=== PATIENT | male | born 1935 | race Caucasian/White ===

== ENCOUNTER 2021-01-26 05:29 | Outpatient (CLI) | payer MEDICARE ==
[~2021-01-26] VITALS: Ht 179 cm; Wt 78.2 kg
[2021-01-28] MEDS ORDERED: ASPI-808 PO (09:15)
[2021-01-28] MEDS ORDERED: BENA20TA7 PO (09:15)
[2021-01-28] MEDS ORDERED: SIMV20TA26 PO (09:15)
[2021-01-28] MEDS ORDERED: MULT-1056 PO (09:15)
[2021-01-28] MEDS ORDERED: AMLO-250 PO (09:15)
[2021-01-28] MEDS ORDERED: HYDR25TA4 PO (09:15)
== END 2021-01-28 09:46 | disposition home or self-care (01) ==
LOC: PREOP 05:29
PROVIDERS: ATTEND Specialist
DX: Z01.818 Encounter for other preprocedural examination (principal)

== ENCOUNTER 2021-01-29 06:32 | Day surgery (SDC) | payer MEDICARE ==
[~2021-01-29] VITALS: Ht 179 cm; Wt 78.0 kg
[~2021-01-29 06:32] MED LIST: AMLO-250 PO; ASPI-808 PO; BENA20TA7 PO; HYDR25TA4 PO; MULT-1056 PO; SIMV20TA26 PO
[2021-01-29] MEDS ORDERED: MOXIFLOXACIN OPHTH SOLN 5 MG/ML 0.3 ML SYRINGE OP ONE (06:45)
[2021-01-29] MEDS ORDERED: LIDOCAINE PF 1% 2 ML VIAL IR PRN (06:45)
[2021-01-29] MEDS ORDERED: POVIDONE (BETADINE) OPHTH SOLN 5% 30 ML OP ONE (06:45)
[2021-01-29] MEDS ORDERED: TIMOLOL MALEATE 0.5% 5 ML (TIMOPTIC) BTL OU PRN (06:45)
[2021-01-29] MEDS ORDERED: MIDAZOLAM 2 MG/2 ML (VERSED) VIAL ONE (06:46)
[2021-01-29] MEDS: TETRACAINE 0.5% OPHTH SOLN 4 ML BTL (SINGLE DOSE ONLY) OU PRN ×4 (06:58→07:17)
[2021-01-29 06:59] VITALS: BP 162/80
[2021-01-29] MEDS: PHENYLEPHRINE 10% OPHTH (NEO-SYN) 5 ML BTL OU SCH ×3 (07:07→07:18)
[2021-01-29] MEDS: TROPICAMIDE 1% OPH SOLN (MYDRIACYL) 15 ML BTL OP SCH ×3 (07:07→07:18)
--- NOTE | 2021-01-29 07:42 | Ophthalmologist Pre-Op Note ---
Pre-Operative Progress Note H&P Reviewed The H&P was reviewed, patient examined and no changes noted. Date H&P Reviewed: Jan 29, 2021 Time H&P Reviewed: 07:42 Pre-Op Dx Cataract, Left Eye RONI CHILDS MD Jan 29, 2021 07:42
[2021-01-29] MEDS ORDERED: acetaZOLAMIDE ER 500 MG CAP (DIAMOX SEQUELS) PO ONE (08:00)
--- NOTE | 2021-01-29 08:08 | Ophthalmology Operative Report ---
Cataract removal/placement IOL PREOPERATIVE DIAGNOSIS: Cataract Left Eye POSTOPERATIVE DIAGNOSIS: Cataract Left Eye PROCEDURE: Cataract removal and placement of posterior chamber implant, left eye SURGEON: Farhat Childs ANESTHESIA: Topical with sedation COMPLICATIONS: None ESTIMATED BLOOD LOSS: Minimal DESCRIPTION OF PROCEDURE: After proper informed consent was obtained, the patient, a 85 male, was taken to the Operating Room and the left eye was anesthetized with tetracaine. The left eye was then prepped and draped in the usual manner. A wire lid speculum was placed. A paracentesis was made at the left hand position. Preservative free lidocaine was injected into the anterior chamber followed by viscoelastic. A clear corneal incision was made in the temporal position. A capsulorrhexis was preformed and the central nuclear and cortical material were removed. The posterior capsule was polished and an Byron 19.0 AU00T0 was placed into the capsular bag. The residual viscoelastic was aspirated and balanced saline solution was injected into the anterior chamber. Moxifloxacin was injected into the anterior chamber. The wound was checked and found to be water tight. The patient tolerated the procedure well without complications. FARHAT CHILDS MD Jan 29, 2021 08:08
[2021-01-29 08:10] VITALS: BP 135/86
--- NOTE | 2021-01-29 08:10 | Anesthesia-General Post-Op ---
MAC Patient Condition Mental Status/LOC: Same as Preop Cardiovascular: Satisfactory Nausea/Vomiting: Absent Respiratory: Satisfactory Pain: Controlled Complications: Absent Post Op Complications Complications None Follow Up Care/Instructions Patient Instructions None needed. Anesthesiology Discharge Order Discharge Order Patient is doing well, no complaints, stable vital signs, no apparent adverse anesthesia problems. No complications reported per nursing. IRINEO ALDANA CRNA Jan 29, 2021 08:10
== END 2021-01-29 08:14 ==
LOC: SDC 06:32
PROVIDERS: ATTEND Specialist
DX: H25.12 Age-related nuclear cataract, left eye (principal); I10 Essential (primary) hypertension; E78.5 Hyperlipidemia, unspecified; M19.90 Unspecified osteoarthritis, unspecified site; Z79.82 Long term (current) use of aspirin; Z79.899 Other long term (current) drug therapy; Z85.46 Personal history of malignant neoplasm of prostate; Z80.9 Family history of malignant neoplasm, unspecified
CPT/HCPCS: 66984; V2632

== ENCOUNTER 2021-02-15 05:33 | Outpatient (CLI) | payer MEDICARE | END 2021-02-18 11:00 | disposition home or self-care (01) | LOC: PREOP 05:33 | PROVIDERS: ATTEND Specialist | DX: Z01.818 Encounter for other preprocedural examination (principal) ==

== ENCOUNTER 2021-02-19 06:00 | Day surgery (SDC) | payer MEDICARE ==
[~2021-02-19] VITALS: Ht 179 cm; Wt 78.0 kg
[2021-02-19] MEDS: TETRACAINE 0.5% OPHTH SOLN 4 ML BTL (SINGLE DOSE ONLY) OU PRN ×4 (06:11→06:34)
[2021-02-19 06:14] VITALS: BP 134/90
[2021-02-19] MEDS ORDERED: TIMOLOL MALEATE 0.5% 5 ML (TIMOPTIC) BTL OU PRN (06:15)
[2021-02-19] MEDS ORDERED: MOXIFLOXACIN OPHTH SOLN 5 MG/ML 0.3 ML SYRINGE OP ONE (06:15)
[2021-02-19] MEDS ORDERED: LIDOCAINE PF 1% 2 ML VIAL IR PRN (06:15)
[2021-02-19] MEDS ORDERED: POVIDONE (BETADINE) OPHTH SOLN 5% 30 ML OP ONE (06:15)
[2021-02-19] MEDS: PHENYLEPHRINE 10% OPHTH (NEO-SYN) 5 ML BTL OU SCH ×3 (06:21→06:35)
[2021-02-19] MEDS: TROPICAMIDE 1% OPH SOLN (MYDRIACYL) 15 ML BTL OP SCH ×3 (06:21→06:35)
[2021-02-19] MEDS ORDERED: MIDAZOLAM 2 MG/2 ML (VERSED) VIAL ONE (06:42)
--- NOTE | 2021-02-19 06:59 | Ophthalmologist Pre-Op Note ---
Pre-Operative Progress Note H&P Reviewed The H&P was reviewed, patient examined and no changes noted. Date H&P Reviewed: February 19, 2021 Time H&P Reviewed: 06:59 Pre-Op Dx Cataract, Right Eye RONI CHILDS MD February 19, 2021 06:59
--- NOTE | 2021-02-19 07:17 | Ophthalmology Operative Report ---
Cataract removal/placement IOL PREOPERATIVE DIAGNOSIS: Cataract Right Eye POSTOPERATIVE DIAGNOSIS: Cataract Right Eye PROCEDURE: Cataract removal and placement of posterior chamber implant, right eye SURGEON: Farhat Childs ANESTHESIA: Topical with sedation COMPLICATIONS: None ESTIMATED BLOOD LOSS: Minimal DESCRIPTION OF PROCEDURE: After proper informed consent was obtained, the patient, a 85 male, was taken to the Operating Room and the right eye was anesthetized with tetracaine. The right eye was then prepped and draped in the usual manner. A wire lid speculum was placed. A paracentesis was made at the left hand position. Preservative free lidocaine was injected into the anterior chamber followed by viscoelastic. A clear corneal incision was made in the temporal position. A capsulorrhexis was preformed and the central nuclear and cortical material were removed. The posterior capsule was polished and Byron AU00T0 20.0 IOL was placed into the capsular bag. The residual viscoelastic was aspirated and balanced saline solution was injected into the anterior chamber. Moxifloxacin was injected into the anterior chamber. The wound was checked and found to be water tight. The patient tolerated the procedure well without complications. FARHAT CHILDS MD February 19, 2021 07:17
[2021-02-19 07:28] VITALS: BP 163/66
[2021-02-19] MEDS ORDERED: acetaZOLAMIDE ER 500 MG CAP (DIAMOX SEQUELS) PO ONE (07:30)
--- NOTE | 2021-02-19 10:20 | Anesthesia-General Post-Op ---
MAC Patient Condition Mental Status/LOC: Same as Preop Cardiovascular: Satisfactory Nausea/Vomiting: Absent Respiratory: Satisfactory Pain: Controlled Complications: Absent Post Op Complications Complications None Follow Up Care/Instructions Patient Instructions None needed. Anesthesiology Discharge Order Discharge Order Patient is doing well, no complaints, stable vital signs, no apparent adverse anesthesia problems. No complications reported per nursing. ALIREZA CHATTERJEE CRNA February 19, 2021 10:20
== END 2021-02-19 07:30 | disposition home or self-care (01) ==
LOC: SDC 06:00
PROVIDERS: ATTEND Specialist
DX: H25.11 Age-related nuclear cataract, right eye (principal); I10 Essential (primary) hypertension; C61 Malignant neoplasm of prostate; M19.90 Unspecified osteoarthritis, unspecified site; Z79.82 Long term (current) use of aspirin; Z98.890 Other specified postprocedural states; Z79.899 Other long term (current) drug therapy
CPT/HCPCS: 66984; V2632

== ENCOUNTER → 2021-08-24 | Outpatient (CLI) | payer MEDICARE | LOC: CARD 12:43 | PROVIDERS: ATTEND Family Medicine | DX: I49.9 Cardiac arrhythmia, unspecified (principal) | CPT/HCPCS: 93005 ==

== ENCOUNTER → 2022-06-24 | Outpatient (CLI) | payer MEDICARE ==
[~2022-06-24] MED LIST changes: +BENA-3 PO; -BENA20TA7 PO
--- NOTE | 2022-06-24 13:52 | Diagnostic Imaging Report ---
INDICATION: Fall with bruising to the 5th toe. COMPARISON: None FINDINGS: 3 radiographic views of the right foot were obtained. There is very subtle curvilinear transversely-oriented lucency through the distal phalanx of the 5th toe. This is felt to represent acute nondisplaced fracture. There is no intra-articular extension. Joint spaces are otherwise maintained. No unexpected radiopaque foreign bodies are seen. IMPRESSION: 1. Subtle acute-appearing nondisplaced fracture of the 5th distal phalanx. Dictated by: Dictated on workstation # [id number]
== END ==
LOC: RAD 09:47
PROVIDERS: ATTEND Family Medicine
DX: S90.121A Contusion of right lesser toe(s) without damage to nail, initial encounter (principal); X58.XXXA Exposure to other specified factors, initial encounter
CPT/HCPCS: 73630

== ENCOUNTER 2022-10-14 14:57 | Inpatient (IN) | payer MEDICARE ==
[~2022-10-14] VITALS: Ht 177 cm; Wt 81.0 kg
[2022-10-14] MEDS ORDERED: NS IV 500 ML 500 ML IV ONE (15:15)
[2022-10-14] MEDS ORDERED: ACETAMINOPHEN 500 MG TAB (TYLENOL) PO PRN (15:15)
[2022-10-14 15:24] LABS: BASOPHILS % (AUTO) 0 % (0-10); EOSINOPHILS # (AUTO) 0.1 10^3/uL (0.0-0.3); EOSINOPHILS % (AUTO) 1 % (0-10); HEMATOCRIT 46 % (40-54); HEMOGLOBIN 15.3 g/dL (13.3-17.7); LYMPHOCYTES # (AUTO) 0.4 X 10^3 (1.0-4.0); LYMPHOCYTES % (AUTO) 4 % (12-44); MEAN CORPUSCULAR HEMOGLOBIN 29 pg (25-34); MEAN CORPUSCULAR HGB CONC 33 g/dL (32-36); MEAN CORPUSCULAR VOLUME 87 fL (80-99); MEAN PLATELET VOLUME 10.1 fL (9.0-12.2); MONOCYTES # (AUTO) 1.2 X 10^3 (0.0-1.0); MONOCYTES % (AUTO) 12 % (0-12); NEUTROPHILS # (AUTO) 8.2 X 10^3 (1.8-7.8); NEUTROPHILS % (AUTO) 83 % (42-75); PLATELET COUNT 206 10^3/uL (130-400); WHITE BLOOD COUNT 9.9 10^3/uL (4.3-11.0)
[2022-10-14 15:25] LABS: BILIRUBIN,URINE NEGATIVE (NEGATIVE); CLARITY,URINE CLEAR; COLOR,URINE YELLOW; GLUCOSE, URINE (UA) NEGATIVE (NEGATIVE); KETONES,URINE NEGATIVE (NEGATIVE); LEUKOCYTE ESTERASE ,URINE NEGATIVE (NEGATIVE); NITRITE,URINE NEGATIVE (NEGATIVE); PROTEIN,URINE 1+ (NEGATIVE)
--- NOTE | 2022-10-14 15:33 | ED General ---
General Chief Complaint: General Problems/Pain Stated Complaint: WEAKNESS Nursing Triage Note: ARRIVED VIA EMS. WEAKNESS GETTING OUT THE CAR. PT COMPLAINS OF A COUGH. Source of Information: Patient Exam Limitations: No Limitations History of Present Illness Date Seen by Provider: Oct 14, 2022 Time Seen by Provider: 15:08 Initial Comments Here with report of weakness. Arrives via EMS. Daughter at bedside. She states that he has been coughing for the last couple of weeks but worse over the last few days. He was weak and fell this morning landing on his right hip and hitting his head. No loss of consciousness. His coughing fits are getting quite severe. He sees Dr. Oliveira who has ordered cough medicine and some outpatient staff that are not helping. Unsure of vaccination status. Daughter reports that he is full code. Patient is very hard of hearing and daughter is the historian. Patient admits to coughing and feeling weak but denies other significant complaints. He states that he does have Parkinson's. Timing/Duration: 1 Week, Getting Worse Severity: Moderate Associated Systoms: No Chest Pain; Cough, Fever/Chills; No Nausea/Vomiting; Shortness of Air, Weakness Allergies and Home Medications Allergies Coded Allergies: No Known Allergies (Verified Allergy, Unknown, 11/06/06) Patient Home Medication List Home Medication List Reviewed: Yes Amlodipine Besylate (Amlodipine Besylate) Unknown Strength Tablet, 1 TAB PO DAILY, (Reported) Entered as Reported by: KARTHIK MACIAS on 01/28/21914 Aspirin (Aspirin) 325 Mg Tablet, 325 MG PO DAILY, (Reported) Entered as Reported by: KARTHIK MACIAS on 01/28/21914 Benazepril HCl (Benazepril HCl) 20 Mg Tablet, 20 MG PO DAILY, (Reported) Entered as Reported by: KARTHIK MACIAS on 01/28/21914 Hydrochlorothiazide (Hydrochlorothiazide) 25 Mg Tablet, 25 MG PO DAILY, (Reported) Entered as Reported by: KARTHIK MACIAS on 01/28/21914 Multivit-Min/FA/Lycopen/Lutein (Men 50 Plus Multivitamin Tab) 1 Each Tablet, 1 EACH PO DAILY, (Reported) Entered as Reported by: KARTHIK MACIAS on 01/28/21914 Simvastatin (Simvastatin) 20 Mg Tablet, 20 MG PO HS, (Reported) Entered as Reported by: KARTHIK MACIAS on 01/28/21 0915 Review of Systems Review of Systems Constitutional: see HPI; No chills; fever, weakness EENTM: nose congestion, throat pain Respiratory: cough, short of breath Cardiovascular: No chest pain, No edema Gastrointestinal: No diarrhea, No nausea, No vomiting Genitourinary: no symptoms reported Musculoskeletal: no symptoms reported Skin: no symptoms reported Psychiatric/Neurological: Denies Headache; Weakness All Other Systems Reviewed Negative Unless Noted: Yes Past Nyvdyka-Tpbuoo-Qaftlo Hx Patient Social History Tobacco Use?: No Smoking Status: Unknown if Ever Smoked Substance use?: No Alcohol Use?: No Past Medical History Surgeries: Yes CABG Respiratory: No Cardiac: Yes Coronary Artery Disease, High Cholesterol, Hypertension Neurological: Yes Parkinson's Disease Genitourinary: No Family Medical History Reviewed Nursing Family Hx No Pertinent Family Hx Physical Exam-Suspected Sepsis Physical Exam Vital Signs Vital Signs - First Documented Capillary Refill : Less Than 3 Seconds Blood Pressure Mean: 129 Height, Weight, BMI Height: '" Weight: lbs. oz. kg; 25.00 BMI Method: General Appearance: WD/WN, Mild Distress (Coughing) HEENT: PERRL/EOMI, Pharyngeal Erythema Neck: Non Tender, Supple Respiratory: Lungs Clear, Normal Breath Sounds Cardiovascular: No Murmur, Tachycardia Gastrointestinal: Non Tender, Soft Back: Normal Inspection, No CVA Tenderness, No Vertebral Tenderness Extremity: Normal Range of Motion, Non Tender Neurologic/Psychiatric: Alert, Oriented x3 Skin: normal color, warm/dry Focused Exam Lactate Level 10/14/22 15:05: Lactic Acid Level 2.43*H Lactic Acid Level Laboratory Tests Test 10/14/22 15:05 Lactic Acid Level 2.43 MMOL/L (0.50-2.00) *H Progress/Results/Core Measures Suspected Sepsis SIRS Temperature: Pulse: 71 Respiratory Rate: 16 Laboratory Tests 10/14/22 15:05: White Blood Count 9.9 Blood Pressure 185 /102 Mean: 129 10/14/22 15:05: Lactic Acid Level 2.43*H Laboratory Tests 10/14/22 15:05: Creatinine 1.38H, INR Comment 1.0, Platelet Count 206, Total Bilirubin 0.9 Results/Orders Lab Results Laboratory Tests Test 10/14/22 15:05 10/14/22 15:11 10/14/22 15:12 Range/Units White Blood Count 9.9 4.3-11.0 10^3/uL Red Blood Count 5.32 4.30-5.52 10^6/uL Hemoglobin 15.3 13.3-17.7 g/dL Hematocrit 46 40-54 % Mean Corpuscular Volume 87 80-99 fL Mean Corpuscular Hemoglobin 29 25-34 pg Mean Corpuscular Hemoglobin Concent 33 32-36 g/dL Red Cell Distribution Width 14.1 10.0-14.5 % Platelet Count 206 130-400 10^3/uL Mean Platelet Volume 10.1 9.0-12.2 fL Immature Granulocyte % (Auto) 1 % Neutrophils (%) (Auto) 83 H 42-75 % Lymphocytes (%) (Auto) 4 L 12-44 % Monocytes (%) (Auto) 12 0-12 % Eosinophils (%) (Auto) 1 0-10 % Basophils (%) (Auto) 0 0-10 % Neutrophils # (Auto) 8.2 H 1.8-7.8 X 10^3 Lymphocytes # (Auto) 0.4 L 1.0-4.0 X 10^3 Monocytes # (Auto) 1.2 H 0.0-1.0 X 10^3 Eosinophils # (Auto) 0.1 0.0-0.3 10^3/uL Basophils # (Auto) 0.0 0.0-0.1 10^3/uL Immature Granulocyte # (Auto) 0.1 0.0-0.1 10^3/uL Neutrophils % (Manual) 85 % Lymphocytes % (Manual) 2 % Monocytes % (Manual) 10 % Eosinophils % (Manual) 3 % Blood Morphology Comment NORMAL Prothrombin Time 14.0 12.2-14.7 SEC INR Comment 1.0 0.8-1.4 Activated Partial Thromboplast Time 32 24-35 SEC Sodium Level 139 135-145 MMOL/L Potassium Level 3.5 L 3.6-5.0 MMOL/L Chloride Level 102 98-107 MMOL/L Carbon Dioxide Level 24 21-32 MMOL/L Anion Gap 13 5-14 MMOL/L Blood Urea Nitrogen 18 7-18 MG/DL Creatinine 1.38 H 0.60-1.30 MG/DL Estimat Glomerular Filtration Rate 49 BUN/Creatinine Ratio 13 Glucose Level 110 H 70-105 MG/DL Lactic Acid Level 2.43 *H 0.50-2.00 MMOL/L Calcium Level 9.1 8.5-10.1 MG/DL Corrected Calcium 9.0 8.5-10.1 MG/DL Total Bilirubin 0.9 0.1-1.0 MG/DL Aspartate Amino Transf (AST/SGOT) 24 5-34 U/L Alanine Aminotransferase (ALT/SGPT) 25 0-55 U/L Alkaline Phosphatase 86 40-136 U/L Total Protein 7.3 6.4-8.2 GM/DL Albumin 4.1 3.2-4.5 GM/DL Influenza Type A (RT-PCR) Detected H Not Detecte Influenza Type B (RT-PCR) Not Detected Not Detecte SARS-CoV-2 RNA (RT-PCR) Not Detected Not Detecte Urine Color YELLOW Urine Clarity CLEAR Urine pH 6.0 5-9 Urine Specific [place] 1.025 H 1.016-1.022 Urine Protein 1+ H NEGATIVE Urine Glucose (UA) NEGATIVE NEGATIVE Urine Ketones NEGATIVE NEGATIVE Urine Nitrite NEGATIVE NEGATIVE Urine Bilirubin NEGATIVE NEGATIVE Urine Urobilinogen 0.2 < = 1.0 MG/DL Urine Leukocyte Esterase NEGATIVE NEGATIVE Urine RBC (Auto) 2+ H NEGATIVE Urine RBC 2-5 H /HPF Urine WBC NONE /HPF Urine Crystals NONE /LPF Urine Bacteria NEGATIVE /HPF Urine Casts NONE /LPF Urine Mucus NEGATIVE /LPF Urine Culture Indicated NO My Orders Orders - TOM ALDANA MD Cbc With Automated Diff (10/14/22 15:11) Comprehensive Metabolic Panel (10/14/22 15:11) Blood Culture (10/14/22 15:11) Sputum Culture (10/14/22 15:11) Urinalysis (10/14/22 15:11) Urine Culture (10/14/22 15:11) Protime With Inr (10/14/22 15:11) Partial Thromboplastin Time (10/14/22 15:11) Chest 1 View, Ap/Pa Only (10/14/22 15:11) Acetaminophen Tablet (Tylenol Tablet) (10/14/22 15:15) Ed Iv/Invasive Line Start (10/14/22 15:11) Vital Signs Adult Sepsis Patie Q15M (10/14/22 15:11) O2 (10/14/22 15:11) Remove Rings In Anticipation O (10/14/22 15:11) Lactic Acid Analyzer (10/14/22 15:11) Influenza A And B By Pcr (10/14/22 15:11) Ct Head Wo (10/14/22 15:11) Pelvis 1 To 2 Views (10/14/22 15:11) Ed Iv/Invasive Line Start (10/14/22 15:11) Ns Iv 500 Ml (Sodium Chloride 0.9%) (10/14/22 15:15) Covid 19 Inhouse Test (10/14/22 15:11) Manual Differential (10/14/22 15:05) Code/Resuscitation (10/14/22 16:19) Medications Given in ED Current Medications Medications Dose Ordered Sig/Concepicon Route Start Time Stop Time Status Last Admin Dose Admin Acetaminophen 1,000 mg ONCE PRN PO 10/14/22 15:15 10/14/22 15:42 DC 10/14/22 15:42 1,000 MG Sodium Chloride 500 ml @ 0 mls/hr Q0M ONCE IV 10/14/22 15:15 10/14/22 15:16 DC 10/14/22 15:42 999 MLS/HR Vital Signs/I&O 10/14/22 10/14/22 10/14/22 15:00 15:00 15:42 Temp 38.0 38.3 Pulse 71 Resp 16 B/P (MAP) 185/102 (129) Pulse Ox 93 98 O2 Delivery Room Air Room Air Capillary Refill : Less Than 3 Seconds Blood Pressure Mean: 129 Progress Note : Progress Note Seen and evaluated. CT head ordered. X-ray pelvis and chest ordered. Sepsis protocol initiated including CBC, CMP, UA and chest x-ray. We did check for influenza and COVID-19. Normal saline 500 mL bolus and Tylenol 1000 mg p.o. ordered. Monitor patient. 1620: I did discuss the case with Dr. Meeks. CT head is negative. X-ray of chest and pelvis do not show any acute findings. Urine is concentrated but not infected. CBC has normal white count with left shift and chemistry does show mildly elevated lactic acid with normal electrolytes. Mildly elevated creatinine noted. I do believe the lactic acid elevation is more related to dehydration and fever and not severe sepsis or septic shock. Chest x-ray does not show pneumonia and there is no other signs of infection other than viral etiology. I do not want to do high-volume fluid resuscitation on him due to history of heart disease. We will continue gentle hydration. Patient was responding well. Due to persistent weakness and age, Dr. Meeks has accepted patient for admission, inpatient status for influenza A and weakness. This was discussed with patient and family who both agree with the plan. Diagnostic Imaging Diagonstic Imaging: CT Plain Films/CT/US/NM/MRI: head Comments [facility] [place], [place] NAME: REID OVALLE [facility] REC#: [id number] PT STATUS: REG ER : 1935 PHYSICIAN: TOM ALDANA MD ADMIT DATE: 10/14/22/ER Signed Date of Exam:10/14/22 CT HEAD WO PROCEDURE: CT head without contrast. TECHNIQUE: Multiple contiguous axial images were obtained through the brain without the use of intravenous contrast. Auto Exposure Controls were utilized during the CT exam to meet ALARA standards for radiation dose reduction. INDICATION: Weakness and cough. COMPARISON: No prior studies are available for comparison. FINDINGS: The ventricles and sulci are consistent with the patient's age. Moderate periventricular low attenuation is noted, consistent with senescent change. No intra-axial or extra-axial hemorrhage is seen. There is no sulcal effacement or midline shift. Cisterns are patent. The visualized paranasal sinuses are clear. IMPRESSION: Senescent changes. No acute intracranial process is detected. Dictated by: Dictated on workstation # [id number] Dict: 10/14/22 1533 Trans: 10/14/22 1542 [id number] Interpreted by: YAMILET SHERWOOD MD Electronically signed by: YAMILET SHERWOOD MD 10/14/22 1542 Diagonstic Imaging: Xray Plain Films/CT/US/NM/MRI: pelvis Comments [facility] [place] [place] NAME: REID OVALLE [facility] REC#: [id number] PT STATUS: REG ER : 1935 PHYSICIAN: TOM ALDANA MD ADMIT DATE: 10/14/22/ER Signed Date of Exam:10/14/22 PELVIS 1 TO 2 VIEWS INDICATION: pelvic pain TECHNIQUE: AP pelvis 3:45 PM CORRELATION STUDY: None FINDINGS: The pelvis demonstrates no evidence for acute fracture. The pectineal lines and obturator rings are maintained. Pubic symphysis and SI joints are unremarkable. Multiple surgical clips within the pelvis. Advanced degenerative changes lower lumbar spine disc spaces. Hips unremarkable. Prominent vascular calcification. IMPRESSION: Negative examination of the pelvis. Dictated by: Dictated on workstation # [id number] Dict: 10/14/22 1547 Trans: 10/14/22 1624 [id number] Interpreted by: CAROLA ELISE DO Electronically signed by: CAROLA ELISE DO 10/14/22 1624 Diagonstic Imaging: Xray Plain Films/CT/US/NM/MRI: chest Comments [facility]. [place], [place] NAME: REID OVALLE [place] [facility] REC#: [id number] PT STATUS: REG ER : 1935 PHYSICIAN: TOM ALDANA MD ADMIT DATE: 10/14/22/ER Signed Date of Exam:10/14/22 CHEST 1 VIEW, AP/PA ONLY INDICATION: cough, fever. TECHNIQUE: Single view chest 3:44 PM. CORRELATION STUDY: None FINDINGS: Poststernotomy change. Heart size and mediastinum are enlarged and prominent. Vascular slightly prominent. The lungs are clear with no consolidating infiltrate. There is no significant effusion or pneumothorax. Cholecystectomy clips right upper quadrant abdomen. IMPRESSION: 1. Borderline heart size and vasculature with a prior sternotomy changes. Dictated by: Dictated on workstation # [id number] Dict: 10/14/22 1546 Trans: 10/14/22 1624 [id number] Interpreted by: CAROLA ELISE DO Electronically signed by: CAROLA ELISE DO 10/14/22 1624 Departure Communication (Admissions) Time/Spoke to Admitting Phy: 16:20 Impression Primary Impression: Influenza A Additional Impression: Weakness Disposition: ADMITTED INPATIENT Condition: Stable Admissions Decision to Admit Reason: Admit from ER (General) Decision to Admit/Date: Oct 14, 2022 Time/Decision to Admit Time: 16:20 Departure-Patient Inst. Referrals: RIKI OLIVEIRA DO (PCP/Family) Primary Care Physician TOM ALDANA MD Oct 14, 2022 15:33
[2022-10-14 15:35] LABS: ALBUMIN 4.1 GM/DL (3.2-4.5); POTASSIUM 3.5 MMOL/L (3.6-5.0)
[2022-10-14 15:36] LABS: CALCIUM 9.1 MG/DL (8.5-10.1)
[2022-10-14 15:38] LABS: TOTAL PROTEIN 7.3 GM/DL (6.4-8.2)
--- NOTE | 2022-10-14 15:38 | Diagnostic Imaging Report ---
PROCEDURE: CT head without contrast. TECHNIQUE: Multiple contiguous axial images were obtained through the brain without the use of intravenous contrast. Auto Exposure Controls were utilized during the CT exam to meet ALARA standards for radiation dose reduction. INDICATION: Weakness and cough. COMPARISON: No prior studies are available for comparison. FINDINGS: The ventricles and sulci are consistent with the patient's age. Moderate periventricular low attenuation is noted, consistent with senescent change. No intra-axial or extra-axial hemorrhage is seen. There is no sulcal effacement or midline shift. Cisterns are patent. The visualized paranasal sinuses are clear. IMPRESSION: Senescent changes. No acute intracranial process is detected. Dictated by: Dictated on workstation # [id number]
[2022-10-14 15:39] LABS: BILIRUBIN,TOTAL 0.9 MG/DL (0.1-1.0)
[2022-10-14 15:40] LABS: BACTERIA,URINE NEGATIVE /HPF
[2022-10-14 15:41] LABS: CREATININE SERUM 1.38 MG/DL (0.60-1.30)
[2022-10-14 15:45] LABS: EOSINOPHILS % (MANUAL) 3 %; LYMPHOCYTES % (MANUAL) 2 %; MONOCYTES % (MANUAL) 10 %; NEUTROPHILS % (MANUAL) 85 %; RBC MORPH NORMAL
--- NOTE | 2022-10-14 15:49 | Diagnostic Imaging Report ---
INDICATION: pelvic pain TECHNIQUE: AP pelvis 3:45 PM CORRELATION STUDY: None FINDINGS: The pelvis demonstrates no evidence for acute fracture. The pectineal lines and obturator rings are maintained. Pubic symphysis and SI joints are unremarkable. Multiple surgical clips within the pelvis. Advanced degenerative changes lower lumbar spine disc spaces. Hips unremarkable. Prominent vascular calcification. IMPRESSION: Negative examination of the pelvis. Dictated by: Dictated on workstation # [id number]
--- NOTE | 2022-10-14 15:49 | Diagnostic Imaging Report ---
INDICATION: cough, fever. TECHNIQUE: Single view chest 3:44 PM. CORRELATION STUDY: None FINDINGS: Poststernotomy change. Heart size and mediastinum are enlarged and prominent. Vascular slightly prominent. The lungs are clear with no consolidating infiltrate. There is no significant effusion or pneumothorax. Cholecystectomy clips right upper quadrant abdomen. IMPRESSION: 1. Borderline heart size and vasculature with a prior sternotomy changes. Dictated by: Dictated on workstation # [id number]
[2022-10-14 19:46] VITALS: BP 146/55
[2022-10-15] VITALS: BP 146/55
[2022-10-15 07:21] VITALS: BP 121/64
[2022-10-15] MEDS ORDERED: ACETAMINOPHEN 325 MG TABLET PO PRN (07:45)
[2022-10-15] MEDS ORDERED: ONDANSETRON 4 MG/2 ML (SDV) Z0FRAN IV PRN (07:45)
[2022-10-15] MEDS: NS IV 1000 ML 1,000 ML IV SCH ×2 (08:51→19:22)
[2022-10-15 09:06] LABS: HEMATOCRIT 42 % (40-54); HEMOGLOBIN 14.2 g/dL (13.3-17.7); MEAN CORPUSCULAR HEMOGLOBIN 29 pg (25-34); MEAN CORPUSCULAR HGB CONC 34 g/dL (32-36); MEAN CORPUSCULAR VOLUME 86 fL (80-99); MEAN PLATELET VOLUME 10.3 fL (9.0-12.2); PLATELET COUNT 169 10^3/uL (130-400); WHITE BLOOD COUNT 5.5 10^3/uL (4.3-11.0)
[2022-10-15 09:21] LABS: POTASSIUM 3.2 MMOL/L (3.6-5.0)
[2022-10-15 09:23] LABS: CALCIUM 8.2 MG/DL (8.5-10.1)
[2022-10-15 09:27] LABS: CREATININE SERUM 1.22 MG/DL (0.60-1.30)
[2022-10-15] MEDS ORDERED: KCL 20 MEQ TAB (K-DUR) PO ONE (10:30)
--- NOTE | 2022-10-15 10:32 | History & Physical-Hospitalist ---
History of Present Illness HPI/Chief Complaint Patient is an 87-year-old male with a past medical history of hypertension and hyperlipidemia who presented to the emergency department due to weakness and falls. He states he was with his family and fell yesterday. This is after not feeling well and coughing for the past couple of weeks. Over the past few days he did start to feel worse which led to his first fall. He complains of a cough that is dry and nonproductive. He states after falling his son wanted to take him to the emergency department but he declined. He then fell again and then he was agreeable to coming to the ER for evaluation. Faustino garcia reports having had his flu shot and COVID boosters. 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 Source: patient Date Seen 10/15/22 Time Seen by a Provider: 09:00 Attending Physician Kurt Russell DO PCP Admitting Physician: Mary Lou Meeks MD Attending Physician: Mary Lou Meeks MD Referring Physician Date of Admission Oct 14, 2022 at 16:27 Home Medications & Allergies Home Medications Reviewed patient Home Medication Reconciliation performed by pharmacy medication reconciliations elevator technician and/or nursing. Patients Allergies have been reviewed. Allergies Allergies Coded Allergies NKANo Known Allergies (Verified Allergy, Unknown, 11/06/06) Past Anxlrol-Cfvhxz-Mctdtf Hx Patient Social History Tobacco Use?: Yes Tobacco type used: Cigarettes Smoking Status: Former Smoker Use of E-Cig and/or Vaping dev: No E-Cig or Vaping type used: Nicotine Use of E-Cig and/or Vaping [place]: Current Everyday User Substance use?: No Substance type: Caffeine Substance frequency: Once in a while Alcohol Use?: No Alcohol Frequency: Rarely Pt feels they are or have been: Yes Current Status Advance Directives: No Primary Language: Chadian Preferred Spoken Language: Chadian Past Medical History Surgeries: CABG Coronary Artery Disease, High Cholesterol, Hypertension Parkinson's Disease Family Medical History Reviewed Nursing Family Hx No Pertinent Family Hx Review of Systems Constitutional: No fever; malaise, weakness EENTM: no symptoms reported Respiratory: cough Cardiovascular: no symptoms reported Gastrointestinal: no symptoms reported Genitourinary: no symptoms reported Musculoskeletal: muscle weakness Skin: no symptoms reported Psychiatric/Neurological: No Symptoms Reported Physical Exam Physical Exam Vital Signs Vital Signs - First Documented Capillary Refill : Less Than 3 Seconds Height, Weight, BMI Height: '" Weight: lbs. oz. kg; 25.85 BMI Method: General Appearance: No Apparent Distress, WD/WN HEENT: PERRL/EOMI, Moist Mucous Membranes; No Scleral Icterus (L), No Scleral Icterus (R) Neck: Normal Inspection, Supple Respiratory: Lungs Clear, No Accessory Muscle Use, No Respiratory Distress Cardiovascular: Regular Rate, Rhythm, No JVD, No Murmur Gastrointestinal: Normal Bowel Sounds, Non Tender, Soft Extremity: Normal Capillary Refill, No Calf Tenderness, No Pedal Edema Neurologic/Psychiatric: Alert, Oriented x3, Normal Mood/Affect Skin: Normal Color, Warm/Dry Results Results/Procedures Labs Laboratory Tests 10/14/22 15:05 10/15/22 08:57 Patient resulted labs reviewed. Imaging: Reviewed Imaging Report [facility] [place] [place] NAME: VASQUEZREID Dixie [facility] REC#: [id number] PT STATUS: REG ER : 1935 PHYSICIAN: TOM ALDANA MD ADMIT DATE: 10/14/22/ER Signed Date of Exam:10/14/22 CHEST 1 VIEW, AP/PA ONLY INDICATION: cough, fever. TECHNIQUE: Single view chest 3:44 PM. CORRELATION STUDY: None FINDINGS: Poststernotomy change. Heart size and mediastinum are enlarged and prominent. Vascular slightly prominent. The lungs are clear with no consolidating infiltrate. There is no significant effusion or pneumothorax. Cholecystectomy clips right upper quadrant abdomen. IMPRESSION: 1. Borderline heart size and vasculature with a prior sternotomy changes. Dictated by: Dictated on workstation # [id number] Dict: 10/14/22 1546 Trans: 10/14/22 162 [facility] [id number] Interpreted by: CAROLA ELISE DO Electronically signed by: CAROLA ELISE DO 10/14/224 [facility] [place] NAME: VASQUEZREID Dixie [facility] REC#: [id number] PT STATUS: REG ER : 1935 PHYSICIAN: TOM ALDANA MD ADMIT DATE: 10/14/22/ER Signed Date of Exam:10/14/22 CT HEAD WO PROCEDURE: CT head without contrast. TECHNIQUE: Multiple contiguous axial images were obtained through the brain without the use of intravenous contrast. Auto Exposure Controls were utilized during the CT exam to meet ALARA standards for radiation dose reduction. INDICATION: Weakness and cough. COMPARISON: No prior studies are available for comparison. FINDINGS: The ventricles and sulci are consistent with the patient's age. Moderate periventricular low attenuation is noted, consistent with senescent change. No intra-axial or extra-axial hemorrhage is seen. There is no sulcal effacement or midline shift. Cisterns are patent. The visualized paranasal sinuses are clear. IMPRESSION: Senescent changes. No acute intracranial process is detected. Dictated by: Dictated on workstation # [id number] Dict: 10/14/22 1533 Trans: 10/14/22 154 AS6 [id number] Interpreted by: YAMILET SHERWOOD MD Electronically signed by: YAMILET SHERWOOD MD 10/14/22 154 [facility] [place], [place] NAME: REID OVALLE Dixie [facility] REC#: [id number] PT STATUS: REG ER : 1935 PHYSICIAN: TOM ALDANA MD ADMIT DATE: 10/14/22/ER Signed Date of Exam:10/14/22 PELVIS 1 TO 2 VIEWS INDICATION: pelvic pain TECHNIQUE: AP pelvis 3:45 PM CORRELATION STUDY: None FINDINGS: The pelvis demonstrates no evidence for acute fracture. The pectineal lines and obturator rings are maintained. Pubic symphysis and SI joints are unremarkable. Multiple surgical clips within the pelvis. Advanced degenerative changes lower lumbar spine disc spaces. Hips unremarkable. Prominent vascular calcification. IMPRESSION: Negative examination of the pelvis. Dictated by: Dictated on workstation # [id number] Dict: 10/14/22 1547 Trans: 10/14/22 1624 DO [id number] Interpreted by: CAROLA ELISE DO Electronically signed by: CAROLA ELISE DO 10/14/22 1624 Assessment/Plan Admission Diagnosis Influenza A Admission Status: Inpatient Order (span 2 midnights) Reason for Inpatient Admission: see below Assessment and Plan Influenza A Dehydation Outside window for treatment with Tamiflu PT/OT due to multiple falls High risk for worsening with outpatient management Lactic acidosis improved with fluids Hypokalemia replace orally HTN Bp well controlled this AM Resume amlodipine if it trends up, try to hold off on HCTZ HLD Continue statin DVT ppx: SCDs and ambulation Diagnosis/Problems Diagnosis/Problems (1) CAD (coronary artery disease) (2) Essential (primary) hypertension (3) HLD (hyperlipidemia) (4) Debility (5) Hypokalemia (6) Presbycusis (7) Dehydration (8) Influenza A Status: Acute (9) Weakness Status: Acute MARY LOU MEEKS MD Oct 15, 2022 10:32 am
[2022-10-15 11:47] VITALS: BP 129/66
--- NOTE | 2022-10-15 13:31 | Physical Therapy Evaluation ---
PT Evaluation-General Medical Diagnosis Admission Date Oct 14, 2022 at 16:27 Medical Diagnosis: Flu Onset Date: Oct 14, 2022 Therapy Diagnosis Therapy Diagnosis: weakness Precautions Precautions/Isolations: Droplet Isolation, Fall Prevention, Standard Precautions Weight Bear Status Right Lower Extremity: Right Full Weight Bearing Left Lower Extremity: Left Full Weight Bearing Referral Physician: Jeanna Reason for Referral: Evaluation/Treatment Medical History Pertinent Medical History: CABG, CAD, HTN, Parkinson's Additional Medical History hyperlipidemia, former smoker Current History Presented to ED with weakness and falls. (+) Flu Reviewed History: Yes Social History Home: Single Level Current Living Status: Children Entry Into Home: Level Entry Prior Prior Level of Function SCALE: Activities may be completed with or without assistive devices. 7-Gqcopgutbr-qoeweao completes the activity by him/herself with no assistance from a helper. 5-Set-up or Clean-up Assistance-helper sets up or cleans up; patient completes activity. [place] assists only prior to or following the activity. 4-Supervision or Touching Assistance-helper provides verbal cues and/or to uching/steadying and/or contact guard assistance as patient completes activity. Assistance may be provided throughout the activity or intermittently. 3-Partial/Moderate Assistance-helper does LESS THAN HALF the effort. [place] lifts, holds or supports trunk or limbs, but provides less than half the effort. 2-Substantial/Maximal Assistance-helper does MORE THAN HALF the effort. [place] lifts or holds trunk or limbs and provides more than half the effort. 0-Poozxcnru-bnjzvv does ALL the effort. Patient does none of the effort to complete the activity. Or, the assistance of 2 or more helpers is required for the patient to complete the activity. If activity was not attempted, code reason: 7-Patient Refused. 9-Not Applicable-not attempted and the patient did not perform the activity before the current illness, exacerbation or injury. 10-Not Attempted due to Environmental Limitations-(lack of equipment, weather restraints, etc.). 88-Not Attempted due to Medical Conditions or Safety Concerns. Bed Mobility: 6 Transfers (B,C,W/C): 6 Gait: 6 Stairs: 6 Wheelchair Mobility: 9 Indoor Mobility (Ambulation): Independent Stairs: Independent Prior Devices Use: Other-see list below Prior Device Use: Quad cane PT Evaluation-Current Subjective Pt in bed, agreeable. Communicated via white board Pain Numeric Pain Scale: 0-No Pain Location: No Pain Reported Pt/Family Goals Home with family Objective Patient Orientation: Person, Place, Time, Situation ROM/Strength ROM Upper Extremities See OT ROM Lower Extremities Grossly WFL for mobility Strength Upper Extremities See OT Strength Lower Extremities Grossly 3+/5 Integumentary/Posture Integumentary See nurses' notes Posture Kyphotic Sensory Vision: Wears Glasses Hearing: Deaf Transfers Sit to Lying (QC): 5 Lying to Sitting/Side of Bed(Q: 3 (Min A x 1) Sit to Stand (QC): 4 (CGA for safety) Gait Does the Patient Walk?: Yes Mode of Locomotion: Walk Anticipated Mode of Locomotion: Walk Walk 10 feet (QC): 4 Walk 50 ft with 2 Turns(QC): 10 Walk 150 ft (QC): 10 Walking 10ft/uneven surface-QC: 10 Distance: 10 Gait Assistive Device: FWW Comments/Gait Description Flexed posture, shuffling gait with narrow LUISA. No kinsey LOB but hurried. Wheelchair Training Does the Pt Use a Wheelchair?: No Type of Wheelchair: N/A Balance Sitting Static: Normal Sitting Dynamic: Normal Standing Static: Fair Standing Dynamic: Fair Treatment Eval. Returned to bed with all needs met. Assessment/Needs Pt would benefit from skilled PT for functional strengthening and gait training to restore PLOF. Rehab Potential: Good PT Short Term Goals Short Term Goals Time Frame: Oct 22, 2022 Roll Left & Right: 6 Sit to lyin Lying to sitting on side of be: 6 Sit to stand: 6 Chair/roa-ri-bwzmb transfer: 6 PT Director Of Culture Goals Prison Goals PT Prison Goals Time Frame: Oct 29, 2022 Roll Left & Right (QC): 6 Sit to Lying (QC): 6 Lying-Sitting on Side/Bed(QC): 6 Sit to Stand (QC): 6 Chair/Clu-vw-Igsad Xfer(QC): 6 Toilet Transfer (QC): 6 Car Transfer (QC): 6 Does the Patient Walk: Yes Walk 10 feet (QC): 6 Walk 50ft with 2 Turns (QC): 6 Walk 150 ft (QC): 6 Walking 10ft on Uneven Surface: 6 1 Step (curb) (QC): 4 4 Steps (QC): 9 12 Steps (QC): 9 Picking up an Object (QC): 9 Does the Pt use WC or Scooter?: No Wheel 50 feet with 2 turns (QC: 9 Type: N/A Wheel 150 feet: 9 Type: N/A PT LTGs established to allow safe return home at [facility] PT Plan Problem List Problem List: Activity Tolerance, Functional Strength, Safety, Balance, Gait, Transfer, Bed Mobility Treatment/Plan Treatment Plan: Continue Plan of Care Treatment Plan: Bed Mobility, Education, Functional Activity [place], Functional Strength, Gait, Safety, Therapeutic Exercise, Transfers Treatment Duration: Oct 29, 2022 Frequency: 6 times per week Estimated Hrs Per Day: .25 hour per day Patient and/or Family Agrees t: Yes Time Time In: 1305 Time Out: 1322 DATE: Oct 15, 2022 Total Billed Treatment Time: 17 Total Billed Treatment 1, RUDY DODGE DPKeira Oct 15, 2022 13:31
[2022-10-15 15:57] VITALS: BP 167/73
[2022-10-15 19:35] VITALS: BP 165/64
[2022-10-15 23:46] VITALS: BP 145/90
[2022-10-16 04:29] VITALS: BP 113/63
[2022-10-16 07:17] LABS: HEMATOCRIT 42 % (40-54); HEMOGLOBIN 14.2 g/dL (13.3-17.7); MEAN CORPUSCULAR HEMOGLOBIN 29 pg (25-34); MEAN CORPUSCULAR HGB CONC 34 g/dL (32-36); MEAN CORPUSCULAR VOLUME 85 fL (80-99); MEAN PLATELET VOLUME 10.4 fL (9.0-12.2); PLATELET COUNT 153 10^3/uL (130-400)
[2022-10-16 07:31] LABS: POTASSIUM 3.2 MMOL/L (3.6-5.0)
[2022-10-16 07:32] VITALS: BP 178/67
[2022-10-16 07:32] LABS: CALCIUM 7.8 MG/DL (8.5-10.1)
[2022-10-16 07:36] LABS: CREATININE SERUM 1.08 MG/DL (0.60-1.30)
[2022-10-16] MEDS: amLODIPine 10 MG (NORVASC) TAB PO SCH (09:01)
--- NOTE | 2022-10-16 10:08 | Progress Note - Hospitalist ---
Subjective HPI/CC On Admission Date Seen by Provider: Oct 16, 2022 Patient is an 87-year-old male with a past medical history of hypertension and hyperlipidemia who presented to the emergency department due to weakness and falls. He states he was with his family and fell yesterday. This is after not feeling well and coughing for the past couple of weeks. Over the past few days he did start to feel worse which led to his first fall. He com [place] of a cough that is dry and nonproductive. He states after falling his son wanted to take him to the emergency department but he declined. He then fell again and then he was agreeable to coming to the ER for evaluation. Patient reports having had his flu shot and COVID boosters. 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 Subjective/Events-last exam Pt reports feeling much better today. States he feels "half-human" again. he did fall last night and has only been out of bed with assistance today. No other complaints. Focused Exam Lactate Level 10/14/22 15:05: Lactic Acid Level 2.43*H 10/14/22 17:14: Lactic Acid Level 1.25 Objective Exam Vital Signs Vital Signs Date Time Temp Pulse Resp B/P (MAP) Pulse Ox O2 Delivery O2 Flow Rate FiO2 10/16/22 07:32 37.5 70 20 178/67 (104) 93 Room Air Capillary Refill : Less Than 3 Seconds General Appearance: No Apparent Distress, Chronically ill Respiratory: Lungs Clear, No Respiratory Distress Cardiovascular: Regular Rate, Rhythm, No Murmur Neurologic/Psychiatric: Alert, Oriented x3 Results/Procedures Lab Laboratory Tests 10/16/22 06:44 Patient resulted labs reviewed. Imaging: Reviewed Imaging Report Assessment/Plan Assessment and Plan Assess & Plan/Chief Complaint Influenza A Dehydation Outside window for treatment with Tamiflu PT/OT due to multiple falls Fell again last night Hypokalemia replace orally again today Is normally on HCTZ as an outpatient, hold HTN Bp trended up this AM Resume amlodipine HLD Continue statin DVT ppx: SCDs and ambulation Diagnosis/Problems Diagnosis/Problems (1) CAD (coronary artery disease) (2) Essential (primary) hypertension (3) HLD (hyperlipidemia) (4) Debility (5) Hypokalemia (6) Presbycusis (7) Dehydration (8) Influenza A Status: Acute (9) Weakness Status: Acute MARY LOU CLEARY MD Oct 16, 2022 10:08
[2022-10-16] MEDS ORDERED: KCL 20 MEQ TAB (K-DUR) PO ONE (10:15)
[2022-10-16 11:18] VITALS: BP 153/64
[2022-10-16 16:00] VITALS: BP 150/62
[2022-10-16 19:36] VITALS: BP 138/68
[2022-10-17] VITALS (7 sets, daily range): BP systolic 142–178; BP diastolic 64–84
[2022-10-17 06:05] LABS: HEMATOCRIT 42 % (40-54); HEMOGLOBIN 14.4 g/dL (13.3-17.7); MEAN CORPUSCULAR HEMOGLOBIN 29 pg (25-34); MEAN CORPUSCULAR HGB CONC 34 g/dL (32-36); MEAN CORPUSCULAR VOLUME 85 fL (80-99); MEAN PLATELET VOLUME 10.3 fL (9.0-12.2); PLATELET COUNT 167 10^3/uL (130-400); WHITE BLOOD COUNT 4.6 10^3/uL (4.3-11.0)
[2022-10-17 06:28] LABS: CALCIUM 7.9 MG/DL (8.5-10.1); CREATININE SERUM 1.22 MG/DL (0.60-1.30); POTASSIUM 3.2 MMOL/L (3.6-5.0)
[2022-10-17] MEDS: amLODIPine 10 MG (NORVASC) TAB PO SCH (08:09)
--- NOTE | 2022-10-17 10:38 | Physical Therapy Daily Note ---
PT Daily Note-Current Subjective Patient and family agree to PT. Pain Section J - Health Conditions 1. Rarely or not at all 2. Occasionally 3. Frequently 4. Almost constantly 8. Unable to answer Pain Effect on Sleep: 1 Pain Interference with Therapy: 1 Pain Interference w/Day-to-Day: 1 Mental Status Patient Orientation: Normal For Age Transfers SCALE: Activities may be completed with or without assistive devices. 5-Czbskvnnlr-zrngavm completes the activity by him/herself with no assistance from a helper. 5-Set-up or Clean-up Assistance-helper sets up or cleans up; patient completes activity. [place] assists only prior to or following the activity. 4-Supervision or Touching Assistance-helper provides verbal cues and/or touching/steadying and/or contact guard assistance as patient completes activity. Assistance may be provided throughout the activity or intermittently. 3-Partial/Moderate Assistance-helper does LESS THAN HALF the effort. [place] lifts, holds or supports trunk or limbs, but provides less than half the effort. 2-Substantial/Maximal Assistance-helper does MORE THAN HALF the effort. [place] lifts or holds trunk or limbs and provides more than half the effort. 2-Hytqsntai-dfplaa does ALL the effort. Patient does none of the effort to complete the activity. Or, the assistance of 2 or more helpers is required for the patient to complete the activity. If activity was not attempted, code reason: 7-Patient Refused. 9-Not Applicable-not attempted and the patient did not perform the activity before the current illness, exacerbation or injury. 10-Not Attempted due to Environmental Limitations-(lack of equipment, weather restraints, etc.). 88-Not Attempted due to Medical Conditions or Safety Concerns. Lying to Sitting/Side of Bed(Q: 6 Sit to Stand (QC): 5 Chair/Rag-cj-Iijvc Xfer(QC): 5 Weight Bearing Right Lower Extremity: Right Full Weight Bearing Left Lower Extremity: Left Full Weight Bearing Gait Training Distance: 200' Walk 10 feet (QC): 5 Walk 50 ft with 2 Turns(QC): 5 Walk 150 ft (QC): 5 Gait Assistive Device: FWW safe and functional with no deviation Assessment Much improved on this date. Patient ambulated in room with FWW. Patient is up in recliner with needs met. PT Short Term Goals Short Term Goals Time Frame: Oct 22, 2022 Roll Left & Right: 6 Sit to lyin Lying to sitting on side of be: 6 Sit to stand: 6 Chair/ohs-me-kmhhv transfer: 6 PT Sales Representative [employer] Goals Sales Representative [employer] Goals PT Sales Representative [employer] Goals Time Frame: Oct 29, 2022 Roll Left & Right (QC): 6 Sit to Lying (QC): 6 Lying-Sitting on Side/Bed(QC): 6 Sit to Stand (QC): 6 Chair/Ipt-am-Cyaar Xfer(QC): 6 Toilet Transfer (QC): 6 Car Transfer (QC): 6 Does the Patient Walk: Yes Walk 10 feet (QC): 6 Walk 50ft with 2 Turns (QC): 6 Walk 150 ft (QC): 6 Walking 10ft on Uneven Surface: 6 1 Step (curb) (QC): 4 4 Steps (QC): 9 12 Steps (QC): 9 Picking up an Object (QC): 9 Does the Pt use WC or Scooter?: No Wheel 50 feet with 2 turns (QC: 9 Type: N/A Wheel 150 feet: 9 Type: N/A PT Plan Treatment/Plan Treatment Plan: Continue Plan of Care Treatment Plan: Bed Mobility, Education, Functional Activity [place], Functional Strength, Gait, Safety, Therapeutic Exercise, Transfers Treatment Duration: Oct 29, 2022 Frequency: 6 times per week Estimated Hrs Per Day: .25 hour per day Patient and/or Family Agrees t: Yes Time Time In: 1002 Time Out: 1013 DATE: Oct 17, 2022 Total Billed Treatment Time: 11 Total Billed Treatment 1 visit FA 11 min BRANT BA PT Oct 17, 2022 10:38
[2022-10-17] MEDS ORDERED: NS IV 500 ML 500 ML IV PRN (16:30)
[2022-10-17] MEDS ORDERED: lisINopril 20 MG (PRINIVIL) TABLET PO NR (16:30)
[2022-10-17] MEDS ORDERED: KCL 20 MEQ TAB (K-DUR) PO NR (16:30)
--- NOTE | 2022-10-17 16:31 | Progress Note - Hospitalist ---
Subjective HPI/CC On Admission Date Seen by Provider: Oct 17, 2022 Time Seen by Provider: 12:10 Patient is an 87-year-old male with a past medical history of hypertension and hyperlipidemia who presented to the emergency department due to weakness and falls. He states he was with his family and fell yesterday. This is after not feeling well and coughing for the past couple of weeks. Over the past few days he did start to feel worse which led to his first fall. He complains of a cough that is dry and nonproductive. He states after falling his son wanted to take him to the emergency department but he declined. He then fell again and then he was agreeable to coming to the ER for evaluation. Patient reports having had his flu shot and COVID boosters. 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 Subjective/Events-last exam He is feeling better. He is hard of hearing. His daughter is at the bedside. Focused Exam Lactate Level 10/14/22 17:14: Lactic Acid Level 1.25 Objective Exam Vital Signs Vital Signs Date Time Temp Pulse Resp B/P (MAP) Pulse Ox O2 Delivery O2 Flow Rate FiO2 10/17/22 12:40 36.9 78 19 146/70 (95) 95 OxyMask Capillary Refill : Less Than 3 Seconds General Appearance: No Apparent Distress, WD/WN Respiratory: Lungs Clear, No Respiratory Distress Cardiovascular: Regular Rate, Rhythm, No Murmur Gastrointestinal: Normal Bowel Sounds, Soft Extremity: Normal Inspection, No Pedal Edema Neurologic/Psychiatric: Alert, Normal Mood/Affect Skin: Normal Color, Warm/Dry Results/Procedures Lab Laboratory Tests 10/17/22 05:25 Patient resulted labs reviewed. 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
[2022-10-17] MEDS: MAGNESIUM 1 GM/100 ML IVPB 100 ML IV SCH (17:00)
[2022-10-17] MEDS: KCL 20 MEQ TAB (K-DUR) PO SCH (17:01)
[2022-10-17] MEDS: POTASSIUM CL 10MEQ/50ML IVPB 50 ML IV SCH (17:03)
[2022-10-18 03:24] VITALS: BP 146/73
[2022-10-18 06:13] LABS: CALCIUM 7.9 MG/DL (8.5-10.1); CREATININE SERUM 1.13 MG/DL (0.60-1.30); MAGNESIUM 2.5 MG/DL (1.6-2.4); POTASSIUM 3.8 MMOL/L (3.6-5.0)
[2022-10-18] MEDS: KCL 20 MEQ TAB (K-DUR) PO SCH (06:19)
[2022-10-18] MEDS: MAGNESIUM 1 GM/100 ML IVPB 100 ML IV SCH (06:19)
[2022-10-18] MEDS: POTASSIUM CL 10MEQ/50ML IVPB 50 ML IV SCH (06:19)
[2022-10-18 07:46] VITALS: BP 189/74
[2022-10-18] MEDS: amLODIPine 10 MG (NORVASC) TAB PO SCH (08:23)
[2022-10-18 08:27] VITALS: BP 110/70
[2022-10-18] MEDS ORDERED: lisINopril 20 MG (PRINIVIL) TABLET PO SCH (09:00)
--- NOTE | 2022-10-18 10:45 | Physical Therapy Daily Note ---
PT Daily Note-Current Subjective Patient states, "I hope to go home today." Agrees to PT. Pain Section J - Health Conditions 1. Rarely or not at all 2. Occasionally 3. Frequently 4. Almost constantly 8. Unable to answer Pain Effect on Sleep: 1 Pain Interference with Therapy: 1 Pain Interference w/Day-to-Day: 1 Mental Status Patient Orientation: Normal For Age Transfers SCALE: Activities may be completed with or without assistive devices. 6-Vcycfwrqxu-aktnose completes the activity by him/herself with no assistance from a helper. 5-Set-up or Clean-up Assistance-helper sets up or cleans up; patient completes activity. Laurier assists only prior to or following the activity. 4-Supervision or Touching Assistance-helper provides verbal cues and/or touching/steadying and/or contact guard assistance as patient completes acti vity. Assistance may be provided throughout the activity or intermittently. 3-Partial/Moderate Assistance-helper does LESS THAN HALF the effort. Laurier lifts, holds or supports trunk or limbs, but provides less than half the effort. 2-Substantial/Maximal Assistance-helper does MORE THAN HALF the effort. Laurier lifts or holds trunk or limbs and provides more than half the effort. 0-Gvyydwqsd-uwuxnf does ALL the effort. Patient does none of the effort to complete the activity. Or, the assistance of 2 or more helpers is required for the patient to complete the activity. If activity was not attempted, code reason: 7-Patient Refused. 9-Not Applicable-not attempted and the patient did not perform the activity before the current illness, exacerbation or injury. 10-Not Attempted due to Environmental Limitations-(lack of equipment, weather restraints, etc.). 88-Not Attempted due to Medical Conditions or Safety Concerns. Sit to Stand (QC): 6 Toilet Transfer (QC): 6 Weight Bearing Right Lower Extremity: Right Full Weight Bearing Left Lower Extremity: Left Full Weight Bearing Gait Training Distance: 175' in room Walk 10 feet (QC): 5 Walk 50 ft with 2 Turns(QC): 5 Walk 150 ft (QC): 5 Gait Assistive Device: FWW extended UE's with FWW use/safe and functional gait sequence Assessment Patient tolerated treatment well and is up in recliner with needs met. PT Short Term Goals Short Term Goals Time Frame: Oct 22, 2022 Roll Left & Right: 6 Sit to lyin Lying to sitting on side of be: 6 Sit to stand: 6 Chair/bwr-fv-bfjif transfer: 6 PT Jail Goals Glass Rolling Machine Operator Goals PT Glass Rolling Machine Operator Goals Time Frame: Oct 29, 2022 Roll Left & Right (QC): 6 Sit to Lying (QC): 6 Lying-Sitting on Side/Bed(QC): 6 Sit to Stand (QC): 6 Chair/Vqm-ty-Kfcsr Xfer(QC): 6 Toilet Transfer (QC): 6 Car Transfer (QC): 6 Does the Patient Walk: Yes Walk 10 feet (QC): 6 Walk 50ft with 2 Turns (QC): 6 Walk 150 ft (QC): 6 Walking 10ft on Uneven Surface: 6 1 Step (curb) (QC): 4 4 Steps (QC): 9 12 Steps (QC): 9 Picking up an Object (QC): 9 Does the Pt use WC or Scooter?: No Wheel 50 feet with 2 turns (QC: 9 Type: N/A Wheel 150 feet: 9 Type: N/A PT Plan Treatment/Plan Treatment Plan: Continue Plan of Care Treatment Plan: Bed Mobility, Education, Functional Activity [place], Functional Strength, Gait, Safety, Therapeutic Exercise, Transfers Treatment Duration: Oct 29, 2022 Frequency: 6 times per week Estimated Hrs Per Day: .25 hour per day Patient and/or Family Agrees t: Yes Time Time In: 1006 Time Out: 1017 DATE: Oct 18, 2022 Total Billed Treatment Time: 11 Total Billed Treatment 1 visit FA 11 min BRANT BA PT Oct 18, 2022 10:45
[2022-10-18 11:30] VITALS: BP 136/69
--- NOTE | 2022-10-18 12:13 | Discharge Summary ---
Discharge Summary Reconcile Patient Problems Problems Reviewed?: Yes Instructions for Patient Via [facility] How do you roll?, Assessment/Instructions See instructions Physician to follow Patient: Yvonne Discharge Diet for Home: Low Sodium Diet Hospital Course Date of Admission: Oct 14, 2022 at 16:27 Admission Diagnosis : Influenza A Family Physician/Provider: Kurt Russell DO Date of Discharge: 10/18/22 Discharge Diagnosis: Influenza A, debility Hospital Course: Chicho Garcia is an 87 year old male with PMH HTN, HLD, CAD, hearing difficulty, who was admitted with influenza A. He was treated with supportive care. He was debilitated and had some falls. He worked with therapy and his strength improved. He was discharged home with home health care. He should follow up with Dr. Russell in about a week. Labs and Pending Lab Test: Laboratory Tests 10/18/22 05:40: Sodium Level 138, Potassium Level 3.8, Chloride Level 108H, Carbon Dioxide Level 21, Anion Gap 9, Blood Urea Nitrogen 18, Creatinine 1.13, Estimat Glomerular Filtration Rate 62, BUN/Creatinine Ratio 16, Glucose Level 93, Calcium Level 7.9L, Magnesium Level 2.5H Microbiology 10/14/22 Gram Stain - Final, Complete 10/14/22 Sputum Culture - Final, Complete Usual upper respiratory niles YEAST 10/14/22 Blood Culture - Preliminary, Resulted No growth 10/14/22 Urine Culture - Final, Complete See Comments Home Meds Active Reported Men 50 Plus Multivitamin Tab (Multivit-Min/FA/Lycopen/Lutein) 1 Each Tablet 1 Each PO DAILY Benazepril HCl 20 Mg Tablet 20 Mg PO DAILY Simvastatin 20 Mg Tablet 20 Mg PO HS Aspirin 325 Mg Tablet 325 Mg PO DAILY Hydrochlorothiazide 25 Mg Tablet 25 Mg PO DAILY Amlodipine Besylate Unknown Strength Tablet 1 Tab PO DAILY Patient Allergies: Coded Allergies: NKANo Known Allergies (Verified Allergy, Unknown, 11/06/06) Home Health Need/Face to Face Date of Face to Face: Oct 18, 2022 Clinical Findings: Generalized weakness and fatigue, Instability, Muscle weakness I have seen Pt [id number]-hh-dtro: Yes Discharged To: Home Diagnosis/Conditions: Flu HTN HLD Debility Hearing difficulty Problems/Diagnosis/Condition: (1) Advanced age (2) Influenza A (3) Debility (4) Essential (primary) hypertension (5) HLD (hyperlipidemia) (6) Presbycusis Patient is Homebound due to: Giovani fall risk due to instabilty, Muscle weakness Homebound Status Due to the above stated illness, injury or surgical procedure (medical condition or diagnosis) and associated clinical findings, the patient is homebound because of his/her inability to leave home except with aid of a supportive device and/or person AND leaving the home requires a considerable and taxing effort or is medically contraindicated. Pt req the following assistanc: Aid of another person, Walker Home Health Nursing Orders Home Health Services Order: Nursing Services, Remelt Pan Tank Operator-Evaluate & Treat, Physical Therapy-Evaluate & Treat Home Health Infusion Therapy Line Start Date: Oct 14, 2022 Therapy Orders Therapy Orders: OT (must have SN or PT order), Physical Therapy Therapy Specific Orders: Eval assistive deivces, Teach enviro modifications/safety, Gait training, Increase strength/endurance Certify Stmt I certify that this patient is under my care and that I, a nurse practitioner or a physician; a journeyman operator assistant working with me, had a face to face encounter that - meets the physician face to face encounter requirements with this patient as dated. Discharge Physical Exam General: Alert, No Acute Distress HEENT: Atraumatic, EOMI, Mucous Memb Moist/Mcdermitt Lungs: Clear to Auscultation, Normal Air Movement Heart: Regular Rate, No Murmurs Abdomen: Normal Bowel Sounds, Soft, No Tenderness Extremities: No Edema, No Tenderness/Swelling Skin: No Rashes, No Significant Lesion Neuro: Normal Speech, Normal Tone Psych/Mental Status: Mental Status NL, Mood NL IRINEO MCGEE MD Oct 18, 2022 12:13
[2022-10-18 15:13] VITALS: BP 136/69
== END 2022-10-18 15:15 | disposition home health service (06) | DRG 195 ==
LOC: EDUNIT# 14:57 → ER 14:58 → 4TH 16:27
PROVIDERS: ADMIT Family Medicine; ATTEND Internal Medicine
DX: J10.1 Influenza due to other identified influenza virus with other respiratory manifestations (principal); I10 Essential (primary) hypertension; I25.10 Atherosclerotic heart disease of native coronary artery without angina pectoris; H91.90 Unspecified hearing loss, unspecified ear; R53.81 Other malaise; H91.10 Presbycusis, unspecified ear; E87.6 Hypokalemia; E86.0 Dehydration; Z87.891 Personal history of nicotine dependence; Z95.1 Presence of aortocoronary bypass graft; E78.00 Pure hypercholesterolemia, unspecified; G20 Parkinson's disease; Z79.82 Long term (current) use of aspirin; Z79.899 Other long term (current) drug therapy; Z20.822 Contact with and (suspected) exposure to COVID-19
CPT/HCPCS: 36415; 70450; 71045; 72170; 80048; 80053; 81000; 83605; 83735; 85007; 85027; 85610; 85730; 87040; 87070; 87088; 87205; 87636; 96360

== ENCOUNTER 2022-11-20 11:21 | Observation (INO) | payer MEDICARE ==
[~2022-11-20] VITALS: Ht 172.7 cm; Wt 85.0 kg
[2022-11-20 11:52] LABS: BASOPHILS # (AUTO) 0.1 10^3/uL (0.0-0.1); BASOPHILS % (AUTO) 0 % (0-10); EOSINOPHILS # (AUTO) 0.1 10^3/uL (0.0-0.3); EOSINOPHILS % (AUTO) 1 % (0-10); HEMATOCRIT 48 % (40-54); HEMOGLOBIN 16.1 g/dL (13.3-17.7); LYMPHOCYTES # (AUTO) 1.3 10^3/uL (1.0-4.0); LYMPHOCYTES % (AUTO) 9 % (12-44); MEAN CORPUSCULAR HEMOGLOBIN 29 pg (25-34); MEAN CORPUSCULAR HGB CONC 33 g/dL (32-36); MEAN CORPUSCULAR VOLUME 87 fL (80-99); MEAN PLATELET VOLUME 10.1 fL (9.0-12.2); MONOCYTES # (AUTO) 0.9 10^3/uL (0.0-1.0); MONOCYTES % (AUTO) 6 % (0-12); NEUTROPHILS # (AUTO) 12.6 10^3/uL (1.8-7.8); NEUTROPHILS % (AUTO) 83 % (42-75); PLATELET COUNT 242 10^3/uL (130-400); WHITE BLOOD COUNT 15.1 10^3/uL (4.3-11.0)
[2022-11-20 11:58] LABS: ALBUMIN 4.2 GM/DL (3.2-4.5); POTASSIUM 3.4 MMOL/L (3.6-5.0)
[2022-11-20 11:59] LABS: CALCIUM 9.2 MG/DL (8.5-10.1); INR 1.1 (0.8-1.4); PROTHROMBIN TIME PATIENT 14.6 SEC (12.2-14.7)
--- NOTE | 2022-11-20 11:59 | ED Trauma-Multisystem ---
General Chief Complaint: Trauma-Non Activation Stated Complaint: FALL, LACERATION ON FOREHEAD, POSS BROKEN ARM Nursing Triage Note: ARRIVED VIA AMB USING A CANE. STATES HE BECAME DIZZY AT [facility] AND FELL HITTING HIS HEAD AND RIGHT ARM. PT THINKS HIS ARM IS BROKEN. UNKNOWN LOC. DROVE HIMSELF HOME AFTER REFUSING EMS AT THE SCENE. PT IS ON BLOOD THINNERS. Source of Information: Patient Exam Limitations: Physical Impairments (Hard of hearing) History of Present Illness Date Seen by Provider: Nov 20, 2022 Time Seen by Provider: 11:40 Initial Comments 87-year-old male arrives to the ED via private vehicle with daughter. States he was at the [facility] became tired, and tried to get a hold of something but ended up tripping and falling striking his head and right elbow. Patient presents with laceration above right eyebrow, deformity to right elbow, abrasion to right knee, and skin tear to right hand. Denies being dizzy before he fell. Did not lose consciousness. He does take an aspirin daily. He is alert and oriented, GCS 15. EMS was called to [facility], patient refused transport, patient drove self home, and his daughter brought him here. He denies fevers, chest pain, shortness of air, abdominal pain. Allergies and Home Medications Allergies Coded Allergies: Derek Known Allergies (Verified Allergy, Unknown, 11/20/22) Patient Home Medication List Home Medication List Reviewed: Yes Amlodipine Besylate (Amlodipine Besylate) Unknown Strength Tablet, 1 TAB PO DAILY, (Reported) Entered as Reported by: KARTHIK MACIAS on 01/28/21914 Aspirin (Aspirin) 325 Mg Tablet, 325 MG PO DAILY, (Reported) Entered as Reported by: KARTHIK MACIAS on 01/28/21914 Benazepril HCl (Benazepril HCl) 20 Mg Tablet, 20 MG PO DAILY, (Reported) Entered as Reported by: KARTHIK MACIAS on 01/28/21914 Hydrochlorothiazide (Hydrochlorothiazide) 25 Mg Tablet, 25 MG PO DAILY, (Reported) Entered as Reported by: KARTHIK MACIAS on 01/28/21914 Multivit-Min/FA/Lycopen/Lutein (Men 50 Plus Multivitamin Tab) 1 Each Tablet, 1 EACH PO DAILY, (Reported) Entered as Reported by: KARTHIK MACIAS on 01/28/21914 Simvastatin (Simvastatin) 20 Mg Tablet, 20 MG PO HS, (Reported) Entered as Reported by: KARTHIK MACIAS on 01/28/21914 Review of Systems Review of Systems Constitutional: see HPI Past Fbqsjwe-Uthfzq-Bwpcco Hx Patient Social History Tobacco Use?: Yes Smoking Status: Former Smoker Substance use?: No Alcohol Use?: No Immunizations Up To Date First/Initial COVID19 Vaccinat: UNKNOWN COVID19 Vaccine Party Host/Hostess: UNKNOWN Past Medical History Surgeries: Yes CABG Respiratory: No Cardiac: Yes Coronary Artery Disease, High Cholesterol, Hypertension Neurological: Yes Parkinson's Disease Genitourinary: No Family Medical History No Pertinent Family Hx Physical Exam Vital Signs Vital Signs - First Documented 11/20/22 11:32 Temp 36.3 Pulse 90 Resp 16 B/P (MAP) 99/69 (79) Pulse Ox 96 O2 Delivery Room Air Height, Weight, BMI Height: '" Weight: lbs. oz. kg; 26.00 BMI Method: General Appearance: No Apparent Distress, WD/WN Head: Lacerations; No Active Bleeding, No Desai's Sign, No Raccoon Eyes Eyes: Bilateral Eye PERRL, Bilateral Eye EOMI Ears, Nose, Throat: No Evidence of ENT Injury; No Clear Fluid (Ears), No Clear Fluid (Nose); Other (TMs clear bilaterally) Neck: Full Range of Motion, Non Tender, Supple Cardiovascular: Regular Rate, Rhythm, No Edema, No Gallop, No JVD, No Murmur Respiratory: Lungs Clear, Normal Breath Sounds, No Accessory Muscle Use, No Respiratory Distress Extremity: Normal Capillary Refill; No Normal Inspection (Deformity right elbow), No Normal Range of Motion (Right elbow), No Non Tender (Right elbow); Swelling (Right elbow) Neurologic/Psychiatric: Alert, Oriented x3, Normal Mood/Affect Skin: Normal Color, Warm/Dry Lutts Coma Score Best Eye Response (Elin): (4) Open Spontaneously Best Verbal Response (Elin): (5) Oriented Best Motor Response (Elin): (6) Obeys Commands Focused Exam Lactate Level 11/20/22 13:55: Lactic Acid Level 1.36 Lactic Acid Level Laboratory Tests Test 11/20/22 13:55 Lactic Acid Level 1.36 MMOL/L (0.50-2.00) Procedures/Interventions Wound Location: Face Other Wound Location Anterior to right eyebrow Wound Length (cm): 2 Wound's Depth, Shape: linear Wound Explored: clean Irrigated w/ Saline (ccs): 20 Betadine Prep?: Yes Anesthesia: 1% Lidocaine Volume Anesthetic (ccs): 5 Suture: Prolene Suture Size: 5-0 Number of Sutures: 7 Splinting and Joint Reduction : Location: Right elbow Pre-Proc Neuro Vasc Exam: normal Post-Proc Neuro Vasc Exam: normal Splint Application: Long Arm Progress/Results/Core Measures Results/Orders Lab Results Laboratory Tests Test 11/20/22 11:37 11/20/22 12:25 11/20/22 13:55 Range/Units White Blood Count 15.1 H 4.3-11.0 10^3/uL Red Blood Count 5.52 4.30-5.52 10^6/uL Hemoglobin 16.1 13.3-17.7 g/dL Hematocrit 48 40-54 % Mean Corpuscular Volume 87 80-99 fL Mean Corpuscular Hemoglobin 29 25-34 pg Mean Corpuscular Hemoglobin Concent 33 32-36 g/dL Red Cell Distribution Width 14.4 10.0-14.5 % Platelet Count 242 130-400 10^3/uL Mean Platelet Volume 10.1 9.0-12.2 fL Immature Granulocyte % (Auto) 1 % Neutrophils (%) (Auto) 83 H 42-75 % Lymphocytes (%) (Auto) 9 L 12-44 % Monocytes (%) (Auto) 6 0-12 % Eosinophils (%) (Auto) 1 0-10 % Basophils (%) (Auto) 0 0-10 % Neutrophils # (Auto) 12.6 H 1.8-7.8 10^3/uL Lymphocytes # (Auto) 1.3 1.0-4.0 10^3/uL Monocytes # (Auto) 0.9 0.0-1.0 10^3/uL Eosinophils # (Auto) 0.1 0.0-0.3 10^3/uL Basophils # (Auto) 0.1 0.0-0.1 10^3/uL Immature Granulocyte # (Auto) 0.1 0.0-0.1 10^3/uL Neutrophils % (Manual) 80 % Lymphocytes % (Manual) 11 % Monocytes % (Manual) 8 % Band Neutrophils 1 % Blood Morphology Comment NORMAL Prothrombin Time 14.6 12.2-14.7 SEC INR Comment 1.1 0.8-1.4 Activated Partial Thromboplast Time 31 24-35 SEC Sodium Level 143 135-145 MMOL/L Potassium Level 3.4 L 3.6-5.0 MMOL/L Chloride Level 107 98-107 MMOL/L Carbon Dioxide Level 22 21-32 MMOL/L Anion Gap 14 5-14 MMOL/L Blood Urea Nitrogen 23 H 7-18 MG/DL Creatinine 1.53 H 0.60-1.30 MG/DL Estimat Glomerular Filtration Rate 43 BUN/Creatinine Ratio 15 Glucose Level 124 H 70-105 MG/DL Calcium Level 9.2 8.5-10.1 MG/DL Corrected Calcium 9.0 8.5-10.1 MG/DL Magnesium Level 2.0 1.6-2.4 MG/DL Total Bilirubin 0.7 0.1-1.0 MG/DL Aspartate Amino Transf (AST/SGOT) 18 5-34 U/L Alanine Aminotransferase (ALT/SGPT) 24 0-55 U/L Alkaline Phosphatase 79 40-136 U/L Troponin I 0.039 H <0.028 NG/ML Total Protein 7.5 6.4-8.2 GM/DL Albumin 4.2 3.2-4.5 GM/DL Procalcitonin 0.04 <0.10 NG/ML Urine Color YELLOW Urine Clarity CLEAR Urine pH 5.5 5-9 Urine Specific [place] >=1.030 1.016-1.022 Urine Protein TRACE H NEGATIVE Urine Glucose (UA) NEGATIVE NEGATIVE Urine Ketones NEGATIVE NEGATIVE Urine Nitrite NEGATIVE NEGATIVE Urine Bilirubin NEGATIVE NEGATIVE Urine Urobilinogen 0.2 < = 1.0 MG/DL Urine Leukocyte Esterase NEGATIVE NEGATIVE Urine RBC (Auto) NEGATIVE NEGATIVE Urine RBC 0-2 /HPF Urine WBC 0-2 /HPF Urine Squamous Epithelial Cells 0-2 /HPF Urine Crystals PRESENT H /LPF Urine Amorphous Sediment MOD SALVADOR URATES H /LPF Urine Bacteria NEGATIVE /HPF Urine Casts PRESENT /LPF Urine Hyaline Casts 10-25 H /LPF Urine Granular Casts 2-5 H /LPF Urine Mucus SMALL H /LPF Urine Culture Indicated NO Lactic Acid Level 1.36 0.50-2.00 MMOL/L My Orders Orders - GAGANDEEP ADKINS APRN Cbc With Automated Diff (11/20/22 11:39) Magnesium (11/20/22 11:39) Chest 1 View, Ap/Pa Only (11/20/22 11:39) Ekg Tracing (11/20/22 11:39) Comprehensive Metabolic Panel (11/20/22 11:39) Protime With Inr (11/20/22 11:39) Partial Thromboplastin Time (11/20/22 11:39) Monitor-Rhythm Ecg Trace Only (11/20/22 11:39) Ed Iv/Invasive Line Start (11/20/22 11:39) Troponin I [place] (11/20/22 11:39) Ct Head/Cervical Spine Wo (11/20/22 11:39) Ua Culture If Indicated (11/20/22 11:39) Elbow, Right, 3 Views (11/20/22 11:49) Manual Differential (11/20/22 11:37) Ns Iv 1000 Ml (Sodium Chloride 0.9%) (11/20/22 12:45) Dipht,Pertuss(Acell),Tet Adult (Boostrix (11/20/22 13:15) Fentanyl Inj (Sublimaze Injection) (11/20/22 13:30) Ceftriaxone 1 Gm Pre-Mix (Rocephin 1 Gm (11/20/22 13:30) Azithromycin Injection (Zithromax Inject (11/20/22 13:30) Blood Culture (11/20/22 13:18) Lactic Acid Analyzer (11/20/22 13:18) Orthostatic Vital Signs (Adult (11/20/22 14:15) Procalcitonin (Pct) (11/20/22 14:15) Covid 19 Inhouse Test (11/20/22 14:15) Influenza A And B By Pcr (11/20/22 14:15) Ed Admission (Communication) (11/20/22 14:18) Medications Given in ED Current Medications Medications Dose Ordered Sig/Concepcion Route Start Time Stop Time Status Last Admin Dose Admin Azithromycin 500 mg/Sodium Chloride 250 ml @ 250 mls/hr ONCE ONCE IV 11/20/22 13:30 11/20/22 14:29 DC 11/20/22 14:55 250 MLS/HR Ceftriaxone Sodium/Dextrose 50 ml @ 100 mls/hr ONCE ONCE IV 11/20/22 13:30 11/20/22 13:59 DC 11/20/22 14:55 100 MLS/HR Diphtheria/ Tetanus/Acell Pertussis 0.5 ml ONCE ONCE IM 11/20/22 13:15 11/20/22 13:16 DC 11/20/22 14:26 0.5 ML Fentanyl Citrate 50 mcg ONCE ONCE IVP 11/20/22 13:30 11/20/22 13:31 DC 11/20/22 14:24 50 MCG Vital Signs/I&O 11/20/22 11:32 Temp 36.3 Pulse 90 Resp 16 B/P (MAP) 99/69 (79) Pulse Ox 96 O2 Delivery Room Air Blood Pressure Mean: 79 Progress Progress Note #1: Time: 11:50 Progress Note Patient seen and evaluated, resting comfortably in bed, no acute distress. Based on exam and symptoms, differential diagnosis includes but is not limited to TIA, stroke, TN, arrhythmia. Work-up initiated, CBC, CMP, troponin, magnesium, coags, chest x-ray, UA, head and neck CT, x-ray of right elbow. Progress Note #2: Time: 13:20 Progress Note Labs, CT, x-rays reviewed. CBC shows elevated WBC at 15.1, hemoglobin normal at 16.1. CMP shows slightly low potassium at 3.4. Creatinine elevated at 1.53, up from 1.13 from labs drawn on 10/17/2022. BUN elevated at 23, previous was 18, GFR down to 43, previous was 62. Troponin elevated at 0.039. Coags normal. UA negative for infection. Will consult with cardiology regarding troponin and new prolonged TN interval on EKG. Right elbow x-ray shows fracture of the distal humerus. We will place posterior long-arm splint. CT of the head and C-spine which shows no acute intracranial process, no hemorrhage, degenerative disease of the C-spine, no fracture or dislocation of the C-spine. Chest x-ray shows Cardiomegaly with patchy right basilar infiltrate, will treat for pneumonia, and consult hospitalist for admission. Blood cultures and lactic acid added on. Initial ECG Impression Date: Nov 20, 2022 Initial ECG Impression Time: 11:51 Initial ECG Rate: 84 Initial ECG Rhythm: Normal Sinus Initial ECG Intervals: TN Initial ECG Intervals TN 309, new first-degree block Initial ECG Impression: Nonspecific Changes Initial ECG Comparisson: Changed Comment New first-degree heart block Diagnostic Imaging Diagonstic Imaging: Xray Plain Films/CT/US/NM/MRI: elbow Comments [facility]. [place], [place] NAME: REID OVALLE MED REC#: [id number] PT STATUS: REG ER : 1935 PHYSICIAN: GAGANDEEP ADKINS APRN ADMIT DATE: 11/20/22/ER Signed Date of Exam:11/20/22 ELBOW, RIGHT, 3 VIEWS INDICATION: Elbow pain. FINDINGS: There is moderate osteoarthritic change. There is a lucency through the posterior aspect of the distal humerus, possibly reflecting a nondisplaced fracture. There is no other fracture or dislocation. IMPRESSION: Lucency through the posterior aspect of the distal humerus, possibly reflecting a fracture. Moderate osteoarthritic change. Dictated by: Dictated on workstation # [id number] Dict: 11/20/22 1230 Trans: 11/20/22 1244 [id number] Interpreted by: KAMRYN CHAN MD Electronically signed by: KAMRYN CHAN MD 11/20/22 1244 Diagonstic Imaging: CT Plain Films/CT/US/NM/MRI: c-spine, head Comments MED REC#: [id number] PT STATUS: ADM Lucia : 1935 PHYSICIAN: GAGANDEEP ADKINS APRN ADMIT DATE: 11/20/22/[facility] Signed Date of Exam:11/20/22 CT HEAD/CERVICAL SPINE WO CLINICAL INDICATION: Patient became dizzy at [employer] and fell hitting his head and right arm. Patient thinks his arm is broken. Patient is on blood thinners. EXAM: Head CT without IV contrast with sagittal and coronal reformations. Axial CT scan of the cervical spine with sagittal and coronal reformations. Auto Exposure Controls were utilized during the CT exam to meet ALARA standards for radiation dose reduction. COMPARISON: Head CT without contrast dated 10/14/2022. FINDINGS: HEAD CT: There is no evidence of acute cerebral infarct, intracranial hemorrhage, or gross mass effect. There is diffuse brain parenchymal volume loss. There is prominence of the lateral and 3rd ventricles which appear to be related to central white matter low attenuation and brain parenchymal volume loss. 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 There is normal correa-white matter distinction. There is no significant midline shift or herniation. There is no evidence of hydrocephalus. The basal cisterns are unremarkable. There is a small soft tissue defect involving the right forehead region, suspected to represent a scalp laceration. There is no skull fracture seen in the region. There is gauze dressing adjacent to the area. Otherwise, the skull, extracranial soft tissue, and orbits are unremarkable. The paranasal sinuses are unremarkable. Temporal bones show no significant abnormality. CERVICAL SPINE: There is no acute cervical spine fracture or dislocation. There are cervical spine vertebral body spurs and facet arthropathy. There is no significant neck soft tissue abnormality. The visualized upper lung howe are clear. IMPRESSION: 1: There is no evidence of an acute intracranial process. There is no intracranial hemorrhage. 2: There is a small soft tissue laceration involving the right forehead region. There is no skull fracture. 3: There is cervical spine degenerative disease with no acute fracture or dislocation. Dictated by: Dictated on workstation # [id number] Dict: 11/20/22 1225 Trans: 11/20/221914 [id number] Interpreted by: TERRENCE IRAHETA MD Electronically signed by: TERRENCE IRAHETA MD 11/20/221914 Diagonstic Imaging: Xray Plain Films/CT/US/NM/MRI: chest Comments [facility] [place], [place] NAME: VASQUEZREID Dixie [facility] REC#: [id number] PT STATUS: REG ER : 1935 PHYSICIAN: GAGANDEEP ADKINS APRN ADMIT DATE: 11/20/22/ER Signed Date of Exam:11/20/22 CHEST 1 VIEW, AP/PA ONLY INDICATION: Chest pain. COMPARISON: 10/14/2022. FINDINGS: There is cardiomegaly. There is patchy right basilar infiltrate. There is no pleural effusion or pneumothorax. The mediastinum is unremarkable. There has been previous median sternotomy. IMPRESSION: Cardiomegaly with patchy right basilar infiltrate. Dictated by: Dictated on workstation # [id number] Dict: 11/20/22 1224 Trans: 11/20/22 1244 [id number] Interpreted by: KAMRYN CHAN MD Electronically signed by: KAMRYN CHAN MD 11/20/22 1244 Departure Communication (Admissions) Time/Spoke to Admitting Phy: 14:[address] Ureña, hospitalist, regarding admission. He recommends completing orthostatic vitals, COVID/flu swabs, and adding on a procalcitonin. He agrees to admit patient. Time/Spoke to Consulting Phy: 13:[address] Church, cardiology, regarding patient's elevated troponin and new prolonged TN interval on his EKG. He recommends admission with serial troponins. He will see the patient in the morning if there is no changes. Impression Primary Impression: LISA (acute kidney injury) Additional Impressions: Fall SIRS (systemic inflammatory response syndrome) Elevated troponin Disposition: ADMITTED INPATIENT Condition: Stable Admissions Decision to Admit Reason: Admit from ER (General) Decision to Admit/Date: Nov 20, 2022 Time/Decision to Admit Time: 14:12 Departure-Patient Inst. Referrals: RIKI OLIVEIRA DO (PCP/Family) Primary Care Physician GAGANDEEP ADKINS APRN Nov 20, 2022 11:59
[2022-11-20 12:01] LABS: TOTAL PROTEIN 7.5 GM/DL (6.4-8.2)
[2022-11-20 12:02] LABS: BILIRUBIN,TOTAL 0.7 MG/DL (0.1-1.0)
[2022-11-20 12:04] LABS: CREATININE SERUM 1.53 MG/DL (0.60-1.30)
[2022-11-20 12:13] LABS: BAND NEUTROPHILS 1 %; LYMPHOCYTES % (MANUAL) 11 %; MONOCYTES % (MANUAL) 8 %; NEUTROPHILS % (MANUAL) 80 %; RBC MORPH NORMAL
[2022-11-20 12:32] LABS: BILIRUBIN,URINE NEGATIVE (NEGATIVE); CLARITY,URINE CLEAR; COLOR,URINE YELLOW; GLUCOSE, URINE (UA) NEGATIVE (NEGATIVE); KETONES,URINE NEGATIVE (NEGATIVE); LEUKOCYTE ESTERASE ,URINE NEGATIVE (NEGATIVE); NITRITE,URINE NEGATIVE (NEGATIVE); PH,URINE 5.5 (5-9); PROTEIN,URINE TRACE (NEGATIVE)
--- NOTE | 2022-11-20 12:37 | Diagnostic Imaging Report ---
INDICATION: Chest pain. COMPARISON: 10/14/2022. FINDINGS: There is cardiomegaly. There is patchy right basilar infiltrate. There is no pleural effusion or pneumothorax. The mediastinum is unremarkable. There has been previous median sternotomy. IMPRESSION: Cardiomegaly with patchy right basilar infiltrate. Dictated by: Dictated on workstation # [id number]
--- NOTE | 2022-11-20 12:37 | Diagnostic Imaging Report ---
INDICATION: Elbow pain. FINDINGS: There is moderate osteoarthritic change. There is a lucency through the posterior aspect of the distal humerus, possibly reflecting a nondisplaced fracture. There is no other fracture or dislocation. IMPRESSION: Lucency through the posterior aspect of the distal humerus, possibly reflecting a fracture. Moderate osteoarthritic change. Dictated by: Dictated on workstation # [id number]
[2022-11-20] MEDS ORDERED: NS IV 1000 ML 1,000 ML IV SCH (12:45)
[2022-11-20 12:46] LABS: BACTERIA,URINE NEGATIVE /HPF; RBC,URINE 0-2 /HPF; SQUAMOUS EPITHELIAL CELL,UR 0-2 /HPF; WBC,URINE 0-2 /HPF
[2022-11-20 12:47] LABS: AMORPHOUS SEDIMENT,UR MOD AMOR URATES /LPF
--- NOTE | 2022-11-20 12:47 | Diagnostic Imaging Report ---
CLINICAL INDICATION: Patient became dizzy at [facility] and fell hitting his head and right arm. Patient thinks his arm is broken. Patient is on blood thinners. EXAM: Head CT without IV contrast with sagittal and coronal reformations. Axial CT scan of the cervical spine with sagittal and coronal reformations. Auto Exposure Controls were utilized during the CT exam to meet ALARA standards for radiation dose reduction. COMPARISON: Head CT without contrast dated 10/14/2022. FINDINGS: HEAD CT: There is no evidence of acute cerebral infarct, intracranial hemorrhage, or gross mass effect. There is diffuse brain parenchymal volume loss. There is prominence of the lateral and 3rd ventricles which appear to be related to central white matter low attenuation and brain parenchymal volume loss. 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 There is normal correa-white matter distinction. There is no significant midline shift or herniation. There is no evidence of hydrocephalus. The basal cisterns are unremarkable. There is a small soft tissue defect involving the right forehead region, suspected to represent a scalp laceration. There is no skull fracture seen in the region. There is gauze dressing adjacent to the area. Otherwise, the skull, extracranial soft tissue, and orbits are unremarkable. The paranasal sinuses are unremarkable. Temporal bones show no significant abnormality. CERVICAL SPINE: There is no acute cervical spine fracture or dislocation. There are cervical spine vertebral body spurs and facet arthropathy. There is no significant neck soft tissue abnormality. The visualized upper lung howe are clear. IMPRESSION: 1: There is no evidence of an acute intracranial process. There is no intracranial hemorrhage. 2: There is a small soft tissue laceration involving the right forehead region. There is no skull fracture. 3: There is cervical spine degenerative disease with no acute fracture or dislocation. Dictated by: Dictated on workstation # [id number]
[2022-11-20] MEDS ORDERED: TETANUS,DIPTH,PERTUSS P/F (BOOSTRIX) 0.5 ML VIAL IM ONE (13:15)
[2022-11-20] MEDS ORDERED: AZITHROMYCIN INJECTION 500 MG in NS (IVPB) 250 ML IV ONE (13:30)
[2022-11-20] MEDS ORDERED: cefTRIAXone 1 GM PRE-MIX 50 ML IV ONE (13:30)
[2022-11-20] MEDS ORDERED: fentaNYL INJ 100 MCG/2 ML AMP IVP ONE (13:30)
[2022-11-20 14:22] VITALS: BP_SYST 140; BP_SYST 146; BP_SYST 149; BP_DIAS 102; BP_DIAS 106; BP_DIAS 81
[2022-11-20] MEDS ORDERED: polyethylene glycoL POWDER 17 GM (MIRALAX) PACK PO PRN (15:15)
[2022-11-20] MEDS ORDERED: NS IV 500 ML 500 ML IV PRN (15:15)
[2022-11-20] MEDS ORDERED: BISACODYL 10 MG SUPP (DULCOLAX) PR PRN (15:15)
[2022-11-20] MEDS ORDERED: ACETAMINOPHEN 325 MG TABLET PO PRN (15:15)
[2022-11-20] MEDS ORDERED: ONDANSETRON 4 MG (ZOFRAN) ORAL DISSOLVE TAB PO PRN (15:15)
[2022-11-20] MEDS ORDERED: ENOXAPARIN 40 MG/0.4 ML (LOVENOX) SYR SC SCH (15:15)
[2022-11-20] MEDS ORDERED: MELATONIN 3 MG TABLET PO PRN (15:15)
[2022-11-20] MEDS ORDERED: ANTACID SUSP 30 ML UDC (MYLANTA) PO PRN (15:15)
[2022-11-20] MEDS ORDERED: CALCIUM CARBONATE 500 MG (TUMS) TAB.CHEW PO PRN (15:15)
[2022-11-20] MEDS ORDERED: ONDANSETRON 4 MG/2 ML (SDV) Z0FRAN IV PRN (15:15)
[2022-11-20] MEDS ORDERED: MILK OF MAGNESIA 400 MG/5 ML 30 ML UDC PO PRN (15:15)
[2022-11-20] MEDS ORDERED: LACTULOSE SYRUP 10GM/15ML (ENULOSE) 30ML UDC PO PRN (15:15)
[2022-11-20] MEDS: LACTATED RINGERS 1,000 ML IV SCH (15:45)
[2022-11-20 15:47] VITALS: BP 133/75
[2022-11-20 15:52] VITALS: BP 138/89
[2022-11-20] MEDS ORDERED: RT-ALBUTEROL SULF 2.5 MG/3 ML PRE-MIX VIAL INH PRN (16:00)
[2022-11-20 19:46] VITALS: BP 130/57
[2022-11-20] MEDS: DOCUSATE SODIUM 100 MG (COLACE) CAP PO SCH (20:47)
[2022-11-20] MEDS: SENNOSIDES 8.6 MG (SENOKOT) TAB PO SCH (20:47)
[2022-11-20] MEDS: RT-ALBUTEROL SULF 2.5 MG/3 ML PRE-MIX VIAL INH SCH (20:51)
[2022-11-20 23:36] VITALS: BP 157/69
[2022-11-21] MEDS: LACTATED RINGERS 1,000 ML IV SCH ×3 (02:37→17:04)
[2022-11-21 03:14] VITALS: BP 126/72
[2022-11-21 06:11] LABS: BASOPHILS # (AUTO) 0.1 10^3/uL (0.0-0.1); BASOPHILS % (AUTO) 1 % (0-10); EOSINOPHILS # (AUTO) 0.2 10^3/uL (0.0-0.3); EOSINOPHILS % (AUTO) 1 % (0-10); HEMATOCRIT 42 % (40-54); HEMOGLOBIN 13.7 g/dL (13.3-17.7); LYMPHOCYTES # (AUTO) 1.9 10^3/uL (1.0-4.0); LYMPHOCYTES % (AUTO) 16 % (12-44); MEAN CORPUSCULAR HEMOGLOBIN 29 pg (25-34); MEAN CORPUSCULAR HGB CONC 33 g/dL (32-36); MEAN CORPUSCULAR VOLUME 88 fL (80-99); MEAN PLATELET VOLUME 10.4 fL (9.0-12.2); MONOCYTES # (AUTO) 1.2 10^3/uL (0.0-1.0); MONOCYTES % (AUTO) 10 % (0-12); NEUTROPHILS # (AUTO) 8.6 10^3/uL (1.8-7.8); NEUTROPHILS % (AUTO) 72 % (42-75); PLATELET COUNT 223 10^3/uL (130-400); WHITE BLOOD COUNT 11.9 10^3/uL (4.3-11.0)
[2022-11-21 06:21] LABS: CALCIUM 8.6 MG/DL (8.5-10.1); CREATININE SERUM 1.12 MG/DL (0.60-1.30); MAGNESIUM 1.9 MG/DL (1.6-2.4); POTASSIUM 3.3 MMOL/L (3.6-5.0)
[2022-11-21] MEDS: POTASSIUM CL 10MEQ/50ML IVPB 50 ML IV SCH (06:23)
[2022-11-21] MEDS: KCL 20 MEQ TAB (K-DUR) PO SCH (06:23)
[2022-11-21] MEDS: MAGNESIUM 1 GM/100 ML IVPB 100 ML IV SCH (06:31)
[2022-11-21 08:00] VITALS: BP 158/66
[2022-11-21] MEDS: DOCUSATE SODIUM 100 MG (COLACE) CAP PO SCH ×2 (08:14→20:46)
[2022-11-21] MEDS: SENNOSIDES 8.6 MG (SENOKOT) TAB PO SCH ×2 (08:14→20:46)
[2022-11-21] MEDS ORDERED: KCL 20 MEQ TAB (K-DUR) PO ONE (09:00)
[2022-11-21] MEDS: RT-ALBUTEROL SULF 2.5 MG/3 ML PRE-MIX VIAL INH SCH ×2 (09:43→21:14)
--- NOTE | 2022-11-21 09:44 | Physical Therapy Evaluation ---
PT Evaluation-General Medical Diagnosis Admission Date Nov 20, 2022 at 14:19 Medical Diagnosis: LISA/fall/SIRS Onset Date: Nov 20, 2022 Therapy Diagnosis Therapy Diagnosis: debility/weakness Precautions Precautions/Isolations: Fall Prevention, Standard Precautions Weight Bear Status Right Lower Extremity: Right Full Weight Bearing Left Lower Extremity: Left Full Weight Bearing Referral Physician: Adelita Reason for Referral: Evaluation/Treatment Medical History Pertinent Medical History: CABG, CAD, HTN, Parkinson's Current History ER via family after becoming dizzy and falling a local store. Reviewed History: Yes Prior Prior Level of Function SCALE: Activities may be completed with or without assistive devices. 0-Uidvlzaljr-gpnxqkz completes the activity by him/herself with no assistance from a helper. 5-Set-up or Clean-up Assistance-helper sets up or cleans up; patient completes activity. [place] assists only prior to or following the activity. 4-Supervision or Touching Assistance-helper provides verbal cues and/or touching/steadying and/or contact guard assistance as patient completes activity. Assistance may be provided throughout the activity or intermittently. 3-Partial/Moderate Assistance-helper does LESS THAN HALF the effort. [place] lifts, holds or supports trunk or limbs, but provides less than half the effort. 2-Substantial/Maximal Assistance-helper does MORE THAN HALF the effort. [place] lifts or holds trunk or limbs and provides more than half the effort. 5-Rlkfmnemk-hwljum does ALL the effort. Patient does none of the effort to complete the activity. Or, the assistance of 2 or more helpers is required for the patient to complete the activity. If activity was not attempted, code reason: 7-Patient Refused. 9-Not Applicable-not attempted and the patient did not perform the activity before the current illness, exacerbation or injury. 10-Not Attempted due to Environmental Limitations-(lack of equipment, weather restraints, etc.). 88-Not Attempted due to Medical Conditions or Safety Concerns. Bed Mobility: 6 Transfers (B,C,W/C): 6 Gait: 6 Indoor Mobility (Ambulation): Independent Prior Devices Use: Other-see list below Prior Device Use: cane PT Evaluation-Current Subjective Patient agrees to PT. Noted soft cast right UE with sling in place Objective Patient Orientation: Normal For Age ROM/Strength ROM Lower Extremities bilateral LE WFL Strength Lower Extremities 3+/5 grossly bilateral LE all planes Integumentary/Posture Integumentary refer to nursing notes Bladder Incontinence: No Posture WFL Neuromuscular (Tone, Coordination, Reflexes) slight tremors/Parkinson's Sensory Vision: Functional Hearing: Impaired Transfers Lying to Sitting/Side of Bed(Q: 4 Sit to Stand (QC): 4 Chair/Uze-zl-Zbdfn Xfer(QC): 4 Toilet Transfer (QC): 4 CGA for safety Gait Does the Patient Walk?: Yes Mode of Locomotion: Walk Anticipated Mode of Locomotion: Walk Walk 10 feet (QC): 4 Walk 50 ft with 2 Turns(QC): 4 Walk 150 ft (QC): 4 Distance: 200' Comments/Gait Description PHARMACOGNOSIST (will issue cane) CGA for safety/NBOS/slight festinating gait Balance Sitting Static: Normal Sitting Dynamic: Normal Standing Static: Fair Standing Dynamic: Fair Assessment/Needs Patient will benefit from skilled PT to address functional strength and mobility to improve current LOF. Patient is currently limited by right UE fracture (NWB). Rehab Potential: Fair PT Nursing Home Goals Nursing Home Goals PT Wireless Field Technician Goals Time Frame: Dec 10, 2022 Roll Left & Right (QC): 6 Sit to Lying (QC): 6 Lying-Sitting on Side/Bed(QC): 6 Sit to Stand (QC): 6 Chair/Cnx-re-Vzqsg Xfer(QC): 6 Toilet Transfer (QC): 6 Walk 10 feet (QC): 5 Walk 50ft with 2 Turns (QC): 5 Walk 150 ft (QC): 5 PT Plan Problem List Problem List: Activity Tolerance, Functional Strength, Safety, Balance, Gait, Transfer, Bed Mobility Treatment/Plan Treatment Plan: Continue Plan of Care Treatment Plan: Bed Mobility, Education, Functional Activity [place], Functional Strength, Gait, Safety, Therapeutic Exercise, Transfers Treatment Duration: Dec 10, 2022 Frequency: 6 times per week Estimated Hrs Per Day: .25 hour per day Patient and/or Family Agrees t: Yes Time Time In: 822 Time Out: 836 DATE: Nov 21, 2022 Total Billed Treatment Time: 14 Total Billed Treatment 1 visit EVModC 14 min BRANT BA PT Nov 21, 2022 09:44
[2022-11-21 11:40] VITALS: BP 113/65
--- NOTE | 2022-11-21 13:41 | History & Physical-Hospitalist ---
History of Present Illness HPI/Chief Complaint Pt is a 87yo Source: patient Date Seen 11/21/22 Time Seen by a Provider: 11:00 Attending Physician Kurt Oliveira DO PCP Admitting Physician: Gabrielle Ureña MD Attending Physician: Gabrielle Ureña MD Referring Physician Date of Admission Nov 20, 2022 at 14:19 Home Medications & Allergies Home Medications Reviewed patient Home Medication Reconciliation performed by pharmacy medication reconciliations automatic equipment technician and/or nursing. Patients Allergies have been reviewed. Allergies Allergies Coded Allergies NKANo Known Allergies (Verified Allergy, Unknown, 11/20/22) Past Otsntyc-Qvwwqq-Pylttb Hx Patient Social History Tobacco Use?: No Smoking Status: Never a Smoker Smokeless Tobacco Frequency: Never a User Use of E-Cig and/or Vaping dev: No Substance use?: No Alcohol Use?: No Pt feels they are or have been: No Immunizations Up To Date Date of Influenza Vaccine: Jul 20, 2023 First/Initial COVID19 Vaccinat: UNKNOWN Tetanus Booster (TDap): Less Than 5 Years Current Status Advance Directives: Yes Advance Directive Location: Family to bring in copy Communicates: Verbally Primary Language: Mongolian Preferred Spoken Language: Mongolian Is interpretation needed?: No Past Medical History Surgeries: CABG Coronary Artery Disease, High Cholesterol, Hypertension Parkinson's Disease Family Medical History No Pertinent Family Hx Physical Exam Physical Exam Vital Signs Vital Signs - First Documented 11/20/22 11/20/22 11:32 15:47 Temp 36.3 Pulse 90 Resp 16 B/P (MAP) 99/69 (79) Pulse Ox 96 O2 Delivery Room Air FiO2 21 Capillary Refill : Less Than 3 Seconds Height, Weight, BMI Height: '" Weight: lbs. oz. kg; 28.49 BMI Method: Results Results/Procedures Labs Laboratory Tests 11/20/22 11:37 11/21/22 05:16 Patient resulted labs reviewed. Assessment/Plan Admission Diagnosis LISA Admission Status: Observation Assessment and Plan LISA Dehydration Falls Creatinine improved this AM with IVF Feeling better Already worked with PT and did well Will resume home health Elevated troponin Cardiology consulted, appreciate recs Troponin was up and then trended back down Echo ordered HTN HLD Resume home meds as able Copy Copies To 1: KURT OLIVEIRA KATELYN M MD Nov 21, 2022 13:41
[2022-11-21] MEDS ORDERED: AMLO-251 PO (14:37)
[2022-11-21] MEDS ORDERED: FOLI0.4T6 PO (14:37)
[2022-11-21] MEDS ORDERED: ASPI-1238 PO (14:37)
[2022-11-21] MEDS ORDERED: BENA40TA84 PO ×2 (14:37→15:03)
[2022-11-21] MEDS ORDERED: ATOR20TA66 PO (14:37)
[2022-11-21] MEDS ORDERED: HYDR12.56 PO (14:37)
--- NOTE | 2022-11-21 14:59 | Discharge Inst-Simple/Standard ---
Discharge Inst-Standard Discharge Medications New, Converted or Re-Newed RX: Transmitted to Pharmacy Patient Instructions/Follow Up Plan of Care/Instructions/FU: Please continue to take your medications as written. Please follow up with your primary care doctor follow up this hospital stay. Activity as Tolerated: Yes Discharge Diet: No Restrictions Return to The Hospital For: Chest pain, shortness of breath, weakness, falling, passing out, if you feel you are getting worse. MARY LOU CLEARY MD Nov 21, 2022 14:59
[2022-11-21] MEDS ORDERED: ENOXAPARIN 40 MG/0.4 ML (LOVENOX) SYR SC SCH (15:00)
[2022-11-21 16:17] VITALS: BP 134/60
[2022-11-21 20:15] VITALS: BP 132/70
[2022-11-21 23:42] VITALS: BP 152/72
[2022-11-22 03:55] VITALS: BP 170/66
[2022-11-22] MEDS: LACTATED RINGERS 1,000 ML IV SCH (04:32)
[2022-11-22 05:36] LABS: BASOPHILS # (AUTO) 0.1 10^3/uL (0.0-0.1); BASOPHILS % (AUTO) 1 % (0-10); EOSINOPHILS # (AUTO) 0.3 10^3/uL (0.0-0.3); EOSINOPHILS % (AUTO) 3 % (0-10); HEMATOCRIT 33 % (40-54); HEMOGLOBIN 11.1 g/dL (13.3-17.7); LYMPHOCYTES # (AUTO) 1.3 10^3/uL (1.0-4.0); LYMPHOCYTES % (AUTO) 13 % (12-44); MEAN CORPUSCULAR HEMOGLOBIN 29 pg (25-34); MEAN CORPUSCULAR HGB CONC 33 g/dL (32-36); MEAN CORPUSCULAR VOLUME 87 fL (80-99); MEAN PLATELET VOLUME 10.6 fL (9.0-12.2); MONOCYTES % (AUTO) 10 % (0-12); NEUTROPHILS # (AUTO) 7.3 10^3/uL (1.8-7.8); NEUTROPHILS % (AUTO) 73 % (42-75); PLATELET COUNT 172 10^3/uL (130-400)
[2022-11-22 06:03] LABS: CREATININE SERUM 1.06 MG/DL (0.60-1.30); MAGNESIUM 1.7 MG/DL (1.6-2.4); POTASSIUM 3.6 MMOL/L (3.6-5.0)
[2022-11-22] MEDS: KCL 20 MEQ TAB (K-DUR) PO SCH (06:08)
[2022-11-22] MEDS: POTASSIUM CL 10MEQ/50ML IVPB 50 ML IV SCH (06:08)
[2022-11-22] MEDS: MAGNESIUM 1 GM/100 ML IVPB 100 ML IV SCH (06:09)
[2022-11-22] MEDS: RT-ALBUTEROL SULF 2.5 MG/3 ML PRE-MIX VIAL INH SCH (07:02)
[2022-11-22 07:35] VITALS: BP 135/78
[2022-11-22] MEDS ORDERED: FOLIC ACID 1 MG TAB PO SCH (09:00)
[2022-11-22] MEDS: DOCUSATE SODIUM 100 MG (COLACE) CAP PO SCH (09:05)
[2022-11-22] MEDS: SENNOSIDES 8.6 MG (SENOKOT) TAB PO SCH (09:05)
--- NOTE | 2022-11-22 09:35 | Discharge Summary ---
Diagnosis/Chief Complaint Date of Admission Nov 20, 2022 at 14:19 Date of Discharge Discharge Date: Nov 21, 2022 Admission Diagnosis LISA Primary Care Kurt Russell DO Discharge Summary Discharge Physical Exam Allergies: Coded Allergies: NKANo Known Allergies (Verified Allergy, Unknown, 11/20/22) Vitals & I&Os Vital Signs Date Time Temp Pulse Resp B/P (MAP) Pulse Ox O2 Delivery O2 Flow Rate FiO2 11/22/22 08:11 60 11/22/22 07:35 36.6 18 135/78 (97) 93 Room Air 11/20/22 15:47 21 Hospital Course Labs (last 24 hrs) Laboratory Tests 11/22/22 05:05: White Blood Count 10.0, Red Blood Count 3.82L, Hemoglobin 11.1L, Hematocrit 33L, Mean Corpuscular Volume 87, Mean Corpuscular Hemoglobin 29, Mean Corpuscular Hemoglobin Concent 33, Red Cell Distribution Width 14.4, Platelet Count 172, Mean Platelet Volume 10.6, Immature Granulocyte % (Auto) 1, Neutrophils (%) (Auto) 73, Lymphocytes (%) (Auto) 13, Monocytes (%) (Auto) 10, Eosinophils (%) (Auto) 3, Basophils (%) (Auto) 1, Neutrophils # (Auto) 7.3, Lymphocytes # (Auto) 1.3, Monocytes # (Auto) 1.0, Eosinophils # (Auto) 0.3, Basophils # (Auto) 0.1, Immature Granulocyte # (Auto) 0.1, Sodium Level 140, Potassium Level 3.6, Chloride Level 108H, Carbon Dioxide Level 22, Anion Gap 10, Blood Urea Nitrogen 18, Creatinine 1.06, Estimat Glomerular Filtration Rate 67, BUN/Creatinine Ratio 17, Glucose Level 117H, Calcium Level 8.0L, Magnesium Level 1.7 Microbiology 11/20/22 Blood Culture - Preliminary, Resulted No growth Patient resulted labs reviewed. Pending Labs Laboratory Tests 11/22/22 05:05: White Blood Count 10.0, Red Blood Count 3.82, Hemoglobin 11.1, Hematocrit 33, Mean Corpuscular Volume 87, Mean Corpuscular Hemoglobin 29, Mean Corpuscular Hemoglobin Concent 33, Red Cell Distribution Width 14.4, Platelet Count 172, Mean Platelet Volume 10.6, Immature Granulocyte % (Auto) 1, Neutrophils (%) (Auto) 73, Lymphocytes (%) (Auto) 13, Monocytes (%) (Auto) 10, Eosinophils (%) (Auto) 3, Basophils (%) (Auto) 1, Neutrophils # (Auto) 7.3, Lymphocytes # (Auto) 1.3, Monocytes # (Auto) 1.0, Eosinophils # (Auto) 0.3, Basophils # (Auto) 0.1, Immature Granulocyte # (Auto) 0.1, Sodium Level 140, Potassium Level 3.6, Chloride Level 108, Carbon Dioxide Level 22, Anion Gap 10, Blood Urea Nitrogen 18, Creatinine 1.06, Estimat Glomerular Filtration Rate 67, BUN/Creatinine Ratio 17, Glucose Level 117, Calcium Level 8.0, Magnesium Level 1.7 Discharge Home Medications: Active Scripts Active Benazepril HCl 40 Mg Tab 20 Mg PO DAILY take 1/2 tab of your normal 40mg dose Reported Folic Acid 0.4 Mg Tablet 0.4 Mg PO DAILY Aspirin EC (Aspirin) 81 Mg Tablet.dr 81 Mg PO DAILY Amlodipine Besylate 10 Mg Tablet 10 Mg PO DAILY Atorvastatin Calcium 20 Mg Tablet 20 Mg PO HS Hydrochlorothiazide 12.5 Mg Tablet 12.5 Mg PO DAILY Instructions to patient/family Please see electronic discharge instructions given to patient. MARY LOU CLEARY MD Nov 22, 2022 09:35
[2022-11-22 11:33] VITALS: BP 133/73
--- NOTE | 2022-11-22 11:54 | Cardiology Progress Note ---
Subjective Date Seen by Provider: Nov 22, 2022 Time Seen by Provider: 11:30 Subjective/Events-last exam No acute events overnight. Pt doing well. ECHO demonstrates normal LV/RV function. Focused Exam Lactate Level 11/20/22 13:55: Lactic Acid Level 1.36 Objective-Cardiology Exam Last Set of Vital Signs Vital Signs 11/20/22 11/22/22 15:47 11:33 Temp 36.8 Pulse 62 Resp 18 B/P (MAP) 133/73 (93) Pulse Ox 94 O2 Delivery Room Air FiO2 21 I&O Intake and Output 11/22/22 00:00 Intake Total 1470 ml Balance 1470 ml Intake Oral 1470 ml # Voids 11 # Bowel Movements 5 General: Alert, Oriented X3 HEENT: Atraumatic Neck: Supple, No JVD Lungs: Clear to Auscultation Heart: Regular Rate, Normal S1, Normal S2, No Murmurs Abdomen: Normal Bowel Sounds Extremities: No Clubbing, No Cyanosis, Other (1-2+ BLE edema) Neuro: Normal Gait, Normal Speech, Other (hard of hearing) Psych/Mental Status: Mental Status NL Results Lab Laboratory Tests 11/22/22 05:05 A/P-Cardiology Assessment/Plan 87M with hx of HTN and HLD presents after a pre-syncopal episodes. Notes increasing light-headedness with recent changes in medications. ## Presyncope: TTE demonstrates EF 55-60%, mild MR. EKG with NSR, 1st degree AV block, PVCs and inferior Q waves. Recent increase in benazepril from 20 to 40mg po QD, while also on norvasc 5 qd and hctz 25 qd. - recommend d/c norvasc - decrease benazepril to 20 qd and hctz to 12.5 qd. Pt still with Edema. - home with event monitoring for at least 2 weeks ## CAD s/p CABG - decrease ASA 325 qd to ASA 81 qd ## Dispo - f/u with PCP and cards for follow up of CHRISTIAN Alston MD Nov 22, 2022 11:54
[2022-11-22 14:07] VITALS: BP 133/73
[2022-11-23] MEDS ORDERED: HydroCHLOROthiazide CAP/TABLET 12.5 MG TAB PO SCH (09:00)
[2022-11-23] MEDS ORDERED: ASPIRIN E.C. 81 MG (ECOTRIN) TAB PO SCH (09:00)
--- NOTE | 2022-11-23 14:42 | CONSULTATION REPORT ---
DATE OF SERVICE: 11/21/2022 REASON FOR CONSULTATION: Syncope. HISTORY OF PRESENT ILLNESS: The patient is an 87-year-old gentleman with a history of hypertension, hyperlipidemia, CAD status post CABG back in 1984, who presents for evaluation of a presyncopal event. The patient states that he had the "[place] virus" and in that scenario he experienced some element of presyncope, but no kinsey loss of consciousness. He was admitted, evaluated and subsequently discharged. He does not follow with a lathe operator. Otherwise, he states that he was at [facility], was moving up and down through the aisles, had some issues with feeling lightheaded and dizzy and was able to hold on to something and fell, sustaining some trauma to the face/head. But he denies kinsey loss of consciousness. He states that he was aware of the entire fall. EMS was called at which point they arrived and he decided that he was not interested in going with EMS. He drove home and his daughter urged him to come in for evaluation and she brought him in for evaluation. Here, his initial EKG demonstrates normal sinus rhythm, first degree AV block, incomplete left bundle branch block with inferior Q-waves and intermittent PVCs. He had a head CT, which was negative for any acute findings and had a chest x-ray, which is consistent with a right basilar infiltrate. Upon further questioning, he does note positional dizziness and states that it has been getting worse over the past two weeks. When we talked about any recent medication changes, he does note that his primary care physician increased his benazepril from 20 to 40 and after that change he does note increased episodes of lightheadedness and dizziness. He is also on hydrochlorothiazide 25 mg p.o. daily. In the emergency room, Flu A and B were negative. COVID was negative. Labs were significant for white blood cell count of 15.1, now down to 11.9. Hemoglobin of 13.7, platelets of 223, creatinine is 1.1, potassium is 3.3, magnesium is 1.9. Lactate is negative at 1.4. Procalcitonin is low. UA is negative. He has been transferred to the floor for further care. REVIEW OF SYSTEMS: All systems were reviewed and are negative except for what has been described in HPI. PAST MEDICAL HISTORY: CAD, status post CABG, hypertension, hyperlipidemia, presyncope. MEDICATIONS: Currently include Norvasc 5 mg p.o. daily, aspirin, benazepril 40 mg p.o. daily, hydrochlorothiazide 25 mg p.o. daily and simvastatin. ALLERGIES: NO KNOWN DRUG ALLERGIES. PHYSICAL EXAMINATION: VITAL SIGNS: T-max 37.2, heart rate is 40s to 80s, respiratory rate 16-18, blood pressure 120-150/60-70, satting greater than 94% on room air. GENERAL: He is in no acute distress. He is resting comfortably in the bed. NECK: Soft and supple. No cervical lymphadenopathy or thyromegaly. Facial trauma is noted. NECK: Soft, supple, no cervical lymphadenopathy, no thyromegaly. EXTREMITIES: Warm and well perfused. He has no cyanosis, clubbing. He does have 1+ pitting edema in the bilateral lower extremities. LUNGS: Clear to auscultation bilaterally. No wheezes, rales or rhonchi. HEART: Regular rate and rhythm, normal S1, S2. Does have a soft systolic murmur. No gallops or rubs were appreciated. ABDOMEN: Has positive bowel sounds, soft, nontender, nondistended, no hepatosplenomegaly. LABS AND IMAGING: Significant for white blood cell count of 11.9, down from 15.1. Hemoglobin 13.7, platelets of 223. Sodium 140, potassium 3.3, chloride 104, bicarbonate 22, BUN 18, creatinine 1.1, magnesium 1.9. Troponin I is negative. INR is 1.1. Lactate is 1.4. Procalcitonin is low. Head CT negative for acute intracranial findings. Chest x-ray shows a right basilar infiltrate. FAMILY HISTORY: Reviewed and is noncontributory. SOCIAL HISTORY: Denies current tobacco use. No drugs or ETOH. ASSESSMENT AND PLAN: The patient is an 87-year-old gentleman with the above-mentioned medical problems who presents for evaluation of presyncopal episode with a subsequent fall. 1. Presyncope. The patient is adamant that he did not lose consciousness, though he did sustain some facial trauma. It is curious that he has not seen a lathe operator in multiple years despite his history of CAD, status post CABG. In addition, he has had recent medication changes and notes increased lightheadedness, dizziness after this medication change. We will confirm his medications with Liya, but as it stands I think we should cut all of his blood pressure medications in half. As such, we will reduce his benazepril to 20 mg p.o. daily, his hydrochlorothiazide to 12.5 mg p.o. daily and his Norvasc, we will have to check on the dosing. This should help with some of the lightheadedness, dizziness he is experiencing. We will also obtain an echocardiogram to assess for any abnormal cardiac structure and function and as well as any structural abnormalities. If his echo is within normal limits and troponins remained negative and his EKG is relatively stable at this point in time, we will consider placing a potline monitor upon discharge and have him follow up with either Dr. lAegria or Dr. Arciniega as an outpatient. Thank you very much for allowing me to participate in his care. Job ID: [id number] DocumentID: [id number] Dictated Date: 11/21/2022 13:47:04 Rubber Cutting Machine Tender Date: 11/21/2022 14:14:00 Dictated By: CHRISTIAN MYERS MD
== END 2022-11-22 09:25 | disposition home or self-care (01) ==
LOC: EDUNIT# 11:21 → ER 11:24 → UNDOADMOB 14:19 → 4TH 14:19 → UNDODISOB 11-22 09:25
PROVIDERS: ADMIT Internal Medicine; ATTEND Internal Medicine
DX: N17.9 Acute kidney failure, unspecified (principal); E86.0 Dehydration; R77.8 Other specified abnormalities of plasma proteins; I10 Essential (primary) hypertension; E78.5 Hyperlipidemia, unspecified; Z79.899 Other long term (current) drug therapy
CPT/HCPCS: 12011; 29105; 70450; 71045; 72125; 73080; 80048 ×2; 80053; 81000; 83605; 83735 ×3; 84145 ×2; 84484; 85007; 85025 ×2; 85027; 85610; 85730; 87040; 87636; 93005; 93041; 94640 ×3; 94760 ×2; 97162; 99284; C8929; 36415; 90715; 93306; 96372; G0378

== ENCOUNTER → 2022-11-22 | Outpatient (CLI) | payer MEDICARE ==
[~2022-11-22] MED LIST changes: +AMLO-251 PO; +ASPI-1238 PO; +ATOR20TA66 PO; +BENA40TA84 PO; +FOLI0.4T6 PO; +HYDR12.56 PO
== END ==
LOC: CARD 15:00
PROVIDERS: ATTEND Internal Medicine Cardiovascular Disease
DX: R55 Syncope and collapse (principal)
CPT/HCPCS: 93246

== ENCOUNTER → 2022-11-29 | Outpatient (CLI) | payer MEDICARE | LOC: ORTHO 09:37 | PROVIDERS: ATTEND Orthopaedic Surgery | DX: S42.401A Unspecified fracture of lower end of right humerus, initial encounter for closed fracture (principal); X58.XXXA Exposure to other specified factors, initial encounter | CPT/HCPCS: 99203 ==

== ENCOUNTER 2022-12-07 15:00 | Day surgery (SDC) | payer MEDICARE ==
[~2022-12-07] VITALS: Ht 172 cm; Wt 78.0 kg
[2022-12-07 13:21] LABS: HEMATOCRIT 45 % (40-54); HEMOGLOBIN 14.7 g/dL (13.3-17.7); MEAN CORPUSCULAR HEMOGLOBIN 29 pg (25-34); MEAN CORPUSCULAR HGB CONC 33 g/dL (32-36); MEAN CORPUSCULAR VOLUME 89 fL (80-99); MEAN PLATELET VOLUME 9.3 fL (9.0-12.2); PLATELET COUNT 310 10^3/uL (130-400); WHITE BLOOD COUNT 10.2 10^3/uL (4.3-11.0)
[2022-12-07 13:22] VITALS: BP 168/93
[2022-12-07 13:37] LABS: PROTHROMBIN TIME PATIENT 13.8 SEC (12.2-14.7)
--- NOTE | 2022-12-07 13:46 | Diagnostic Imaging Report ---
EXAMINATION: Chest 1 view HISTORY: Complete heart block. COMPARISON: 11/20/2022. FINDINGS: The lung volumes are normal. No focal consolidation is seen. No large pleural effusion or pneumothorax is seen. The cardiomediastinal silhouette is stable in size with post-CABG changes. No acute osseous abnormality is seen. IMPRESSION: 1. No acute pleuroparenchymal process. Dictated by: Dictated on workstation # [id number]
[2022-12-07 13:54] LABS: ALBUMIN 3.8 GM/DL (3.2-4.5); BILIRUBIN,TOTAL 1.1 MG/DL (0.1-1.0); CALCIUM 9.2 MG/DL (8.5-10.1); CREATININE SERUM 1.24 MG/DL (0.60-1.30); POTASSIUM 3.6 MMOL/L (3.6-5.0)
[~2022-12-07 15:00] MED LIST changes: +HEParin (CATH LAB) 1,000 ML IV ONE; +LIDOCAINE 1% INJ 20 ML VIAL ONE; +NS IV 1000 ML 1,000 ML IV ONE; +NS IV 1000 ML 2,000 ML ONE; +ceFAZolin INJECTION 1,000 MG ONE; +ceFAZolin INJECTION 1,000 MG VIAL IV ONE
--- NOTE | 2022-12-07 15:06 | Cardiac Procedure Note-CS/ASA ---
Pre-Procedure Note Pre-Op Procedure Note Date of Available H&P: Dec 01, 2022 Date H&P Reviewed: Dec 07, 2022 Time H&P Reviewed: 15:06 History & Physical: H&P Reviewed, Patient Examed, No changes noted Pre-Operative Diagnosis: Complete heart block. Conscious Sedation Pre-Proced Time 15:06 ASA Score 3 For ASA 3 and 4: Consider anesthesia and medical clearance. Also, for patients with a history of failed moderate sedation consider anesthesia. Airway Lungs Heart ASA score ASA 1: a normal healthy patient ASA 2: a patient with a mild systemic disease (mid diabetes, controlled hypertension, obesity ASA 3: a patient with a severe systemic disease that limits activity (angina, COPD, prior Myocardial infarction) ASA 4: a patient with an incapacitating disease that is a constant threat to life (CHF, renal failure) ASA 5: a moribund patient not expected to survive 24 hrs. (ruptured aneurysm) ASA 6: a declared brain- patient whose organs are being harvested. For emergent operations, add the letter E after the classification Mallampati Classification Grade 3 Sedation Plan Analgesia, Amnesia, Plan communicated to team members, Discussed options with patient/fam, Discussed risks with patient/fam The patient is an appropriate candidate to undergo the planned procedure, sedation, and anesthesia. The patient immediately re-assessed prior to indication. BUDDY ANDERSON MD Dec 07, 2022 15:06
[2022-12-07] MEDS ORDERED: fentaNYL INJ 100 MCG/2 ML AMP ONE ×2 (15:18→15:49)
[2022-12-07] MEDS ORDERED: MIDAZOLAM 5 MG/5 ML (VERSED) VIAL ONE (15:18)
[2022-12-07] MEDS ORDERED: MIDAZOLAM 2 MG/2 ML (VERSED) VIAL ONE ×2 (15:49→16:03)
[2022-12-07] MEDS ORDERED: proPOfol 200 MG/20 ML (DIPRIVAN) VIAL IV ONE (16:06)
[2022-12-07] MEDS ORDERED: PROPOFOL INJECTION 50 ML IV ONE (17:08)
--- NOTE | 2022-12-07 17:10 | Permanent Pacemaker Implant ---
Dual Chamber Pacemaker Implant PROCEDURE PHYSICIAN: Buddy Alegria DUAL CHAMBER PACEMAKER IMPLANTATION: DATE OF PROCEDURE: 12/07/22 INDICATION: Complete heart block PREOPERATIVE DIAGNOSIS: Complete heart block, syncope POSTOPERATIVE DIAGNOSIS: Complete heart block HISTORY: 87-year-old gentleman with multiple falls, had heart monitor showing episodes of complete heart block with near syncope and multiple falls. Dual-chamber pacemaker implant was advised PROCEDURE PERFORMED: 1. Dual-chamber permanent pacemaker implantation. 2. Fluoroscopy. 3. Central venous access. ANESTHESIA: Local anesthesia, conscious sedation. COMPLICATIONS: None. ESTIMATED BLOOD LOSS:20 mL. SPECIMENS: None. ORAL ANTICOAGULATION: None. FLUOROSCOPY TIME: FLUOROSCOPY DOSE: CONTRAST DOSE: PROCEDURE DETAILS: Patient was placed on the Transmission Inspector table, procedure was explained, signed a consent. All pros and cons were explained Left subclavian vein was accessed with 2 separate sticks. Sheath were placed. Ventricular lead was advanced and placed at the apex. Good sensing and capture activity Atrial lead was placed at the right atrial appendage, good sensing and capture activity Skin pocket was irrigated, device was placed in the pocket and the wound was closed on 2 layers of sutures. Patient had significant hearing loss, was not following command, anesthesia were called with assistance with sedation. DEVICE INFORMATION: LUIS XT MRI [id number] RA LEAD: [id number] RV LEAD: [id number] PER-OPERATIVE DEVICE INTERROGATION: Good sensing and capture activity IMMEDIATE POSTOPERATIVE DEVICE INTERROGATION: Right atrium, bipolar, threshold 0.4 ms at 0.5 V. Impedance 418 ohms, P wave 0.8 mV. Right ventricle, bipolar, 0.4 ms at 0.75 V. Impedance 741 ohms, R wave 7.9 mV. PLAN: The patient transferred to the ICU. We will continue with two more doses of IV antibiotics. We will check a chest x-ray and interrogate the device in the morning. The patient will continue on oral antibiotics for 5 days. CONCLUSION: Successful dual-chamber pacemaker implantation with no complication FINAL DIAGNOSIS: Complete heart block Bradycardia Syncope Cardiac pacemaker BUDDY ALEGRIA MD Dec 07, 2022 17:09
--- NOTE | 2022-12-07 17:12 | Anesthesia-General Post-Op ---
MAC Patient Condition Mental Status/LOC: Same as Preop Cardiovascular: Satisfactory Nausea/Vomiting: Absent Respiratory: Satisfactory Pain: Controlled Complications: Absent Post Op Complications Complications None Follow Up Care/Instructions Patient Instructions None needed. Anesthesiology Discharge Order Discharge Order Patient is doing well, no complaints, stable vital signs, no apparent adverse anesthesia problems. No complications reported per nursing. ALIREZA CHATTERJEE CRNA Dec 07, 2022 17:12
[2022-12-07] MEDS ORDERED: PATIENT MAY USE OWN MEDS, ALL PO SCH (17:15)
[2022-12-07] MEDS ORDERED: NS IV 1000 ML 1,000 ML IV SCH (17:15)
[2022-12-07 17:34] VITALS: BP 190/100
[2022-12-07 17:45] VITALS: BP 185/87
[2022-12-07 18:00] VITALS: BP 197/96
[2022-12-07] MEDS ORDERED: meTOprolol 5 MG/5 ML (LOPRESSOR) VIAL IV NR ×2 (18:00→18:30)
[2022-12-07 18:15] VITALS: BP 184/89
[2022-12-07 19:53] VITALS: BP 176/108
--- NOTE | 2022-12-07 20:04 | Diagnostic Imaging Report ---
CLINICAL INDICATION: Patient with pacemaker. EXAM: Portable chest x-ray semiupright view. COMPARISON: Chest x-ray dated 12/07/2022. FINDINGS: Stable cardiomegaly. There is no significant pulmonary vascular congestion. There is mild bibasilar atelectasis. There is mild groundglass opacification involving both lungs which may be related to atelectasis, but subtle superimposed infiltrates cannot be completely excluded. There is interval placement of a cardiac pacemaker overlying the left chest with two leads projecting over the heart which are intact. There is no pneumothorax. There is no pleural effusion. There is degenerative disease involving the spine. Again seen postop change to the chest with sternotomy wires. IMPRESSION: 1: There is interval placement of a cardiac pacemaker overlying the left chest in good position and is intact. There is no pneumothorax. 2: There is interval development of groundglass opacification involving both lungs which may represent atelectasis, but superimposed infiltrates cannot be completely excluded. 3: There is mild bibasilar atelectasis. Dictated by: Dictated on workstation # [id number]
[2022-12-07] MEDS: meTOprolol TARTRATE 25 MG (LOPRESSOR) TABLET PO SCH (21:55)
[2022-12-07] MEDS: ceFAZolin INJECTION 1,000 MG in NS (IVPB) 50 ML IV SCH (21:55)
[2022-12-08 04:00] VITALS: BP 194/99
[2022-12-08 04:57] LABS: HEMATOCRIT 40 % (40-54); HEMOGLOBIN 13.4 g/dL (13.3-17.7); MEAN CORPUSCULAR HEMOGLOBIN 30 pg (25-34); MEAN CORPUSCULAR HGB CONC 34 g/dL (32-36); MEAN CORPUSCULAR VOLUME 88 fL (80-99); MEAN PLATELET VOLUME 9.8 fL (9.0-12.2); PLATELET COUNT 267 10^3/uL (130-400); WHITE BLOOD COUNT 16.8 10^3/uL (4.3-11.0)
[2022-12-08 05:19] LABS: ALBUMIN 3.2 GM/DL (3.2-4.5); BILIRUBIN,TOTAL 1.1 MG/DL (0.1-1.0); CALCIUM 8.3 MG/DL (8.5-10.1); CREATININE SERUM 1.05 MG/DL (0.60-1.30); POTASSIUM 3.5 MMOL/L (3.6-5.0); TOTAL PROTEIN 5.9 GM/DL (6.4-8.2)
[2022-12-08] MEDS: ceFAZolin INJECTION 1,000 MG in NS (IVPB) 50 ML IV SCH (05:41)
[2022-12-08] MEDS ORDERED: CEFU500T63 PO (06:23)
[2022-12-08] MEDS ORDERED: METO-351 PO (06:23)
--- NOTE | 2022-12-08 06:24 | Discharge Inst-Post CATH ---
Discharge Inst-CATH/EP Problems Reviewed?: Yes Post Cardiac Cath/EP D/C Inst Follow Up/Plan Appointment with Dr Alegria in one week <b>CARDIAC CATH/EP PROCEDURE DISCHARGE INSTRUCTIONS</b> ACTIVITY * Go Home directly and rest. * Limit activity of the leg (or wrist if it was used) for 7 days including aerobics, swimming, jogging, bicycling, etc. * Restrict stair-climbing for 7 days if possible, if not, climb up with your non-cath leg, then bring together on the same step. * Avoid lifting, pushing, pulling or excessive movement of the affected extremity for 7 days. * Customary sexual activity may be resumed after 2 days-use caution not to use a position that strains or causes pain to the affected extremity. * No driving for 24 hours. * NO SMOKING. * Avoid straining for bowel movements for 7 days. * Gentle walking on level ground is allowed. * Returning to work will depend on the type of procedure and the results. Your doctor will discuss this with you. CALL YOUR DOCTOR FOR ANY OF THE FOLLOWING: *If bleeding from the puncture site occurs- Apply gentle pressure to site with clean cloth and call your doctor or EMS. * If a knot or lump forms under the skin, increases in size, or causes pain. * If bruising appears to be worsening or moving further down your leg instead of disappearing. * Temperature above 101 F. CARE OF YOUR GROIN INCISION; * Bruising or purple discoloration of the skin near the puncture site is common. * You may shower only, no bathtub bathing for 5 days. Be careful to avoid slipping as your leg may feel stiff. * If a closure device was used on your femoral artery, please see the attached guide regarding care of the device and your leg. * Leave dressing on FOR 24 hours. CARE OF YOUR WRIST INCISION; * Bruising or purple discoloration of the skin near the puncture site is common. * You may shower. * DO NOT submerge wrist. * Leave dressing on FOR 24 hours. BUDDY ALEGRIA MD Dec 08, 2022 06:24
[2022-12-08 07:48] VITALS: BP 180/98
[2022-12-08] MEDS ORDERED: LOSA50TA63 PO (08:11)
--- NOTE | 2022-12-08 08:12 | Cardiology Progress Note ---
Subjective Date Seen by Provider: Dec 08, 2022 Time Seen by Provider: 08:11 Subjective/Events-last exam Patient was seen at bedside, doing well, heart rate is better Review of Systems General: No Chills, No Night Sweats, No Fatigue, No Malaise, No Appetite, No Other HEENT: No Head Aches, No Visual Changes, No Eye Pain, No Ear Pain, No Dysphasia, No Sinus Congestion, No Post Nasal Drip, No Sore Throat, No Other Pulmonary: No Dyspnea, No Cough, No Pleuritic Chest Pain, No Other Cardiovascular: No: Chest Pain, Palpitations, Orthopnea, Paroxysmal Noc. Dyspnea, Edema, Lt Headedness, Other Objective-Cardiology Exam Last Set of Vital Signs Vital Signs 12/08/22 07:48 Temp 37.4 Pulse 78 Resp 16 B/P (MAP) 180/98 (125) Pulse Ox 95 O2 Delivery Room Air I&O Intake and Output 12/08/22 00:00 Intake Total 50 ml Balance 50 ml Intake IV Total 50 ml General: Alert, Oriented X3, Cooperative HEENT: Atraumatic, PERRLA Neck: Supple, No JVD, No Thyromegaly Lungs: Clear to Auscultation, Normal Air Movement Heart: Regular Rate, Normal S1, Normal S2, Other (Systolic murmur) Abdomen: Normal Bowel Sounds, Soft, No Tenderness, No Hepatosplenomegaly, No Masses Extremities: No Clubbing, No Cyanosis, No Edema, Normal Pulses, No Tend erness/Swelling Skin: No Rashes, No Breakdown, No Significant Lesion Neuro: Normal Gait, Normal Speech, Strength at 5/5 X4 Ext, Normal Tone, Sensation Intact Psych/Mental Status: Mental Status NL, Mood NL Results Lab Laboratory Tests 12/07/22 13:15 12/08/22 04:28 A/P-Cardiology Assessment/Plan Syncope, secondary to complete heart block Better at this time Complete heart block, 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 Planning for discharge and follow-up as an outpatient Hypertension Started on Toprol and losartan Monitor blood pressure BUDDY ANDERSON MD Dec 08, 2022 08:12
[2022-12-08] MEDS: meTOprolol TARTRATE 25 MG (LOPRESSOR) TABLET PO SCH (08:44)
[2022-12-08] MEDS ORDERED: lisINopril 20 MG (PRINIVIL) TABLET PO SCH (09:00)
[2022-12-08] MEDS ORDERED: NON-FORMULARY MEDICATION 1 EA EA (Benazepril HCl 20 MG) PO SCH (09:00)
[2022-12-08] MEDS ORDERED: NON-FORMULARY MEDICATION 1 EA EA (Folic Acid 0.4 MG) PO SCH (09:00)
[2022-12-08] MEDS ORDERED: FOLIC ACID 1 MG TAB PO SCH (09:00)
[2022-12-08] MEDS ORDERED: ASPIRIN E.C. 81 MG (ECOTRIN) TAB PO SCH (09:00)
[2022-12-08 12:00] VITALS: BP 170/78
[2022-12-08 12:24] VITALS: BP 170/78
== END 2022-12-08 12:30 | disposition home or self-care (01) ==
LOC: CATH 15:00 → CSD 17:31 → CATH 12-08 12:30
PROVIDERS: ATTEND Internal Medicine Cardiovascular Disease
DX: I44.2 Atrioventricular block, complete (principal); I10 Essential (primary) hypertension; R00.1 Bradycardia, unspecified; I25.10 Atherosclerotic heart disease of native coronary artery without angina pectoris; R09.89 Other specified symptoms and signs involving the circulatory and respiratory systems; H91.90 Unspecified hearing loss, unspecified ear; E78.2 Mixed hyperlipidemia; Z95.1 Presence of aortocoronary bypass graft; Z87.891 Personal history of nicotine dependence
CPT/HCPCS: 33208; 36415; 71045; 80053; 80061; 85027; 85610; 85730; 87081; 93005

== ENCOUNTER → 2022-12-13 | Outpatient (CLI) | payer MEDICARE ==
[~2022-12-13] MED LIST changes: +CEFU500T63 PO; -HEParin (CATH LAB) 1,000 ML IV ONE; -LIDOCAINE 1% INJ 20 ML VIAL ONE; +LOSA50TA63 PO; +METO-351 PO; -NS IV 1000 ML 1,000 ML IV ONE; -NS IV 1000 ML 2,000 ML ONE; -ceFAZolin INJECTION 1,000 MG ONE; -ceFAZolin INJECTION 1,000 MG VIAL IV ONE
--- NOTE | 2022-12-13 09:04 | Diagnostic Imaging Report ---
INDICATION: Right elbow pain. COMPARISON: 12/10/2022 TECHNIQUE: 3 radiographs of the right elbow dated 12/13/2022 FINDINGS: A transversely oriented lucency is identified extending across the distal humerus, including through the medial lateral epicondyles. Alignment dislocation is anatomic. An elbow joint effusion is present. No additional fracture or dislocation. Significant degenerative changes involving the right elbow are again identified with joint space narrowing and osteophyte formation. No suspicious radiopaque foreign body. IMPRESSION: Findings concerning for a nondisplaced intercondylar/supracondylar fracture involving the distal humerus with elbow joint effusion. Moderate degenerative changes of the elbow. Dictated by: Dictated on workstation # [id number]
== END ==
LOC: ORTHO 08:27
PROVIDERS: ATTEND Orthopaedic Surgery
DX: S42.494D Other nondisplaced fracture of lower end of right humerus, subsequent encounter for fracture with routine healing (principal); I10 Essential (primary) hypertension; E78.00 Pure hypercholesterolemia, unspecified; X58.XXXD Exposure to other specified factors, subsequent encounter
CPT/HCPCS: 73080; G0463; 99213

== ENCOUNTER → 2023-01-03 | Outpatient (CLI) | payer MEDICARE ==
--- NOTE | 2023-01-03 08:47 | Diagnostic Imaging Report ---
EXAMINATION: CT chest, abdomen and pelvis with and without contrast. TECHNIQUE: AP, lateral, and oblique views of the right elbow obtained. HISTORY: PAIN IN RIGHT ELBOW COMPARISON: Right elbow radiograph 12/13/2022 FINDINGS: Redemonstration of nondisplaced intercondylar/supracondylar fracture involving the distal right humerus with increased sclerosis along the fracture cleft. Redemonstration of joint effusion. No unexpected radiopaque foreign bodies. Mild joint space narrowing and marginal osteophyte formation. IMPRESSION: Redemonstration of nondisplaced intercondylar/supracondylar fracture involving the distal right humerus with increased sclerosis along the fracture cleft. Dictated by: Dictated on workstation # [id number]
== END ==
LOC: ORTHO 08:14
PROVIDERS: ATTEND Orthopaedic Surgery
DX: S42.401A Unspecified fracture of lower end of right humerus, initial encounter for closed fracture (principal); X58.XXXA Exposure to other specified factors, initial encounter
CPT/HCPCS: 73080; G0463; 99213

== ENCOUNTER → 2023-02-07 | Outpatient (CLI) | payer MEDICARE ==
--- NOTE | 2023-02-07 09:20 | Diagnostic Imaging Report ---
INDICATION: Elbow pain COMPARISON: 01/03/2023 TECHNIQUE: 3 radiographs of the right elbow dated 02/07/2023. FINDINGS: Previously noted intracondylar/supracondylar nondisplaced fracture is again demonstrated. Slightly increasing sclerosis and periosteal reaction is present, though significant persisting fracture lucency does remain. Alignment remains stable and essentially anatomic. No new fracture or dislocation. No destructive osseous process. Persistent elbow joint effusion is present. No suspicious radiopaque foreign body. IMPRESSION: Continued interval healing, though incomplete healing of previously noted intercondylar/supracondylar nondisplaced fracture. Recommend continued radiographic followup to ensure complete healing. Persistent elbow joint effusion. No new acute osseous abnormality.. Dictated by: Dictated on workstation # [id number]
== END ==
LOC: ORTHO 08:13
PROVIDERS: ATTEND Orthopaedic Surgery
DX: S42.494D Other nondisplaced fracture of lower end of right humerus, subsequent encounter for fracture with routine healing (principal); X58.XXXD Exposure to other specified factors, subsequent encounter
CPT/HCPCS: 73080; G0463; 99213

== ENCOUNTER → 2023-04-11 | Outpatient (CLI) | payer MEDICARE ==
--- NOTE | 2023-04-11 13:37 | Diagnostic Imaging Report ---
ELBOW, RIGHT, 3 VIEWS INDICATION: Fracture follow-up COMPARISON: 02/07/2023 TECHNIQUE: 3 views of the right elbow FINDINGS: The simple transverse fracture across the humeral condyles maintains anatomic alignment. No progressive interosseous or periosteal bridging callus is noted on today's examination. The chronic elbow joint effusion is unchanged. No new fracture seen. IMPRESSION: Stable alignment of nondisplaced humeral condylar fractures without increased healing in the interim. Dictated by: Dictated on workstation # [id number]
== END ==
LOC: ORTHO 08:02
PROVIDERS: ATTEND Orthopaedic Surgery
DX: S42.494D Other nondisplaced fracture of lower end of right humerus, subsequent encounter for fracture with routine healing (principal); X58.XXXD Exposure to other specified factors, subsequent encounter
CPT/HCPCS: 73080; 99213